=== PATIENT | male | born 1965 | race Caucasian/White ===

== ENCOUNTER → 2016-06-20 | Outpatient (CLI) | payer OTHER ==
[~2016-06-20] VITALS: Ht 177.8 cm; Wt 86.2 kg
[~2016-06-20] MED LIST: ALBU17IN INH; ALBU83IN INH; AMBI10TA PO; AMPH20CA PO; ASPI81TA85 PO; ATIV1TAB7 PO; AVEL1TAB PO; CAND8TAB PO; CARV25TA PO; CAYENNE PEPPER PO; CO Q400C2 PO; CORL1.7T PO; DOCU10CA PO; DUONSOL NEB; EFFE150C PO; FENO145T PO; IPRASOL4 NEB; KLOR1TAB65 PO; LASI40TA PO; LOTRCRE TOP; NS 1,000 ML IV SCH; OSEL75CA PO; PRED10TA PO; PROPOFOL 200 MG/20 ML VIAL As Ordered ONE; PSYLLIUM HUSK PO; SPIR25TA2 PO; TAMI45CA PO; TEST200I14 IM; TORS100T12 PO; VITA100037 PO; VITATAB11 PO; XANA2TAB2 PO; XOPE0.63 INH; ZYLO300T4 PO
--- NOTE | 2016-06-20 09:07 | ROOR ---
Patient Name: Jesus Manuel Mariscal Procedure Date: 06/20/2016 8:43 AM Date of : 1965 Age: 50 Room: [facility] Gender: Male Note Status: Finalized Procedure: Colonoscopy to Cecum Indications: Screening for colorectal malignant neoplasm Providers: Kapil Diaz MD Referring MD: MAX CLIFTON MD Requesting Provider: Medicines: Monitored Anesthesia Care Complications: No immediate complications. Procedure: Pre-Anesthesia Assessment: - The heart rate, respiratory rate, oxygen saturations, blood pressure, adequacy of pulmonary ventilation, and response to care were monitored throughout the procedure. The Colonoscope was introduced through the anus and advanced to the cecum, identified by appendiceal orifice and ileocecal valve. The colonoscopy was performed without difficulty. The patient tolerated the procedure well. The quality of the bowel preparation was excellent. Findings: The perianal and digital rectal examinations were normal. Non-bleeding internal hemorrhoids were found during retroflexion. The hemorrhoids were small and Grade I (internal hemorrhoids that do not prolapse). Scattered small-mouthed diverticula were found in the recto-sigmoid colon, in the sigmoid colon and in the descending colon. The exam was otherwise without abnormality on direct and retroflexion views. Impression: - Non-bleeding internal hemorrhoids. - Diverticulosis in the recto-sigmoid colon, in the sigmoid colon and in the descending colon. - The examination was otherwise normal on direct and retroflexion views. - No specimens collected. - The exam was otherwise normal to the cecum. Recommendation: - Patient has a contact number available for emergencies. The signs and symptoms of potential delayed complications were discussed with the patient. Return to normal activities tomorrow. Written discharge instructions were provided to the patient. - High fiber diet. - Discharge patient to home. - Continue present medications. - Repeat colonoscopy in 10 years for screening purposes. - Return to referring physician. - The findings and recommendations were discussed with the patient's family. Kapil Diaz MD Kapil Diaz MD 06/20/2016 9:06:52 AM This report has been signed electronically. Number of Addenda: 0 Note Initiated On: 06/20/2016 8:43 AM Estimated Blood Loss: Estimated blood loss: none.
[2016-06-20 09:34] VITALS: BP 143/78
== END ==
LOC: M OPP 06:56
PROVIDERS: ATTEND Internal Medicine Gastroenterology
DX: K62.5 Hemorrhage of anus and rectum (principal); K64.0 First degree hemorrhoids; K57.30 Diverticulosis of large intestine without perforation or abscess without bleeding; I25.2 Old myocardial infarction; G47.30 Sleep apnea, unspecified; F32.9 Major depressive disorder, single episode, unspecified; F41.9 Anxiety disorder, unspecified; E78.5 Hyperlipidemia, unspecified; I50.42 Chronic combined systolic (congestive) and diastolic (congestive) heart failure; I11.0 Hypertensive heart disease with heart failure; M10.9 Gout, unspecified; R94.31 Abnormal electrocardiogram [ECG] [EKG]; R12 Heartburn; R06.83 Snoring; J45.909 Unspecified asthma, uncomplicated; Z91.040 Latex allergy status; Z88.8 Allergy status to other drugs, medicaments and biological substances; Z79.82 Long term (current) use of aspirin; Z79.51 Long term (current) use of inhaled steroids; Z79.899 Other long term (current) drug therapy; Z95.810 Presence of automatic (implantable) cardiac defibrillator; Z87.891 Personal history of nicotine dependence; Z80.0 Family history of malignant neoplasm of digestive organs

== ENCOUNTER → 2016-08-23 | Outpatient (CLI) | payer OTHER ==
[~2016-08-23] MED LIST changes: -NS 1,000 ML IV SCH; -PROPOFOL 200 MG/20 ML VIAL As Ordered ONE; +TORS100T PO; -TORS100T12 PO
--- NOTE | 2016-08-23 08:51 | REP ---
Clinical: Chest pain and fatigue. Comparison: 11/03/2015 . Technique: PA and lateral. Findings: The mediastinum and cardiac silhouette are normal. Single lead pacemaker noted. The lung bernardo are clear and without acute consolidation, effusion, or pneumothorax. The skeletal structures are intact and normal. Impression: 1. No acute cardiopulmonary process. Signed by Carlitos Ortiz MD 08/23/2016 08:42 A
[2016-08-23 09:26] LABS: MEAN CORPUSCULAR HEMOGLOBIN 32.8 pg (27.0-33.0); MEAN CORPUSCULAR HGB CONC 35.3 g/dl (32.0-36.5); MEAN CORPUSCULAR VOLUME 92.9 fl (80.0-96.0); RED CELL DISTRIBUTION WIDTH 12.2 % (11.5-14.5); WHITE BLOOD COUNT 6.7 K/mm3 (4.0-10.0)
[2016-08-23 09:54] LABS: ALBUMIN 3.4 GM/DL (3.2-5.2); ALBUMIN/GLOBULIN RATIO 1.17 (1.00-1.93); ALKALINE PHOSPHATASE 66 U/L (45-117); ALT/SGPT 58 U/L (12-78); ANION GAP 8 MEQ/L (8-16); AST/SGOT 35 U/L (15-37); BILIRUBIN,TOTAL 0.3 MG/DL (0.2-1.0); BLOOD UREA NITROGEN 16 MG/DL (7-18); CALCIUM LEVEL 8.9 MG/DL (8.5-10.1); CARBON DIOXIDE LEVEL 35 MEQ/L (21-32); CHLORIDE LEVEL 101 MEQ/L (98-107); CREATININE FOR GFR 1.11 MG/DL (0.70-1.30); GLOMERULAR FILTRATION RATE > 60.0 (>56); GLUCOSE, FASTING 108 MG/DL (70-105); POTASSIUM SERUM 3.8 MEQ/L (3.5-5.1); SODIUM LEVEL 144 MEQ/L (136-145); TOTAL PROTEIN 6.3 GM/DL (6.4-8.2)
--- NOTE | 2016-08-23 10:00 | REP ---
REASON: Right upper quadrant pain. COMPARISON EXAMINATION: None. Multiple ultrasonographic images of the liver show diffuse increased echoes throughout the hepatic parenchyma without evidence of a mass or ductal dilatation. The common bile duct measures 4 mm. Multiple ultrasonographic images of the gallbladder show at least one echogenic focus in the gallbladder neck region which casts an acoustic shadow. There is no pericholecystic edema or abnormal gallbladder wall thickening. The imaged portion of the pancreas and right kidney are within normal limits. IMPRESSION: Cholelithiasis and fatty infiltration of the liver. Signed by Wiley Messer DO 08/23/2016 11:15 A
== END ==
LOC: M LAB 08:12 → M RAD 08:12
PROVIDERS: ATTEND Family Medicine
DX: K80.20 Calculus of gallbladder without cholecystitis without obstruction (principal); K76.0 Fatty (change of) liver, not elsewhere classified; K29.70 Gastritis, unspecified, without bleeding; R53.83 Other fatigue

== ENCOUNTER 2018-03-07 14:14 | Emergency (ER) | payer OTHER ==
[2018-03-07 14:59] LABS: BASO % 0.4 % (0.0-1.0); EOS # 0.2 10^3/uL (0.0-0.50); EOS % 2.2 % (0.0-3.0); HEMATOCRIT 38.1 % (42.0-52.0); IMMATURE GRANULOCYTE % 0.7 % (0-3.0); LYMPH # 1.7 10^3/uL (1.5-4.5); LYMPH % 23.4 % (24.0-44.0); MEAN CORPUSCULAR HEMOGLOBIN 31.4 pg (27.0-33.0); MEAN CORPUSCULAR HGB CONC 34.1 g/dl (32.0-36.5); MONO # 0.8 10^3/uL (0.0-0.8); MONO % 10.2 % (0.0-5.0); NEUTROPHILS # 4.6 10^3/uL (1.8-7.7); NEUTROPHILS % 63.1 % (36.0-66.0); PLATELET COUNT, AUTOMATED 278 10^3/uL (150-450); RED BLOOD COUNT 4.14 10^6/uL (4.30-6.10); RED CELL DISTRIBUTION WIDTH 12.8 % (11.5-14.5); WHITE BLOOD COUNT 7.3 10^3/uL (4.0-10.0)
[2018-03-07 15:26] LABS: ALBUMIN 3.9 GM/DL (3.2-5.2); ALBUMIN/GLOBULIN RATIO 1.44 (1.00-1.93); ALKALINE PHOSPHATASE 52 U/L (45-117); ALT/SGPT 22 U/L (12-78); ANION GAP 10 MEQ/L (8-16); AST/SGOT 13 U/L (7-37); BILIRUBIN,DIRECT < 0.1 MG/DL (0.0-0.2); BILIRUBIN,TOTAL 0.3 MG/DL (0.2-1.0); BLOOD UREA NITROGEN 17 MG/DL (7-18); CALCIUM LEVEL 9.5 MG/DL (8.5-10.1); CARBON DIOXIDE LEVEL 29 MEQ/L (21-32); CHLORIDE LEVEL 103 MEQ/L (98-107); CREATININE FOR GFR 0.86 MG/DL (0.70-1.30); GLOMERULAR FILTRATION RATE > 60.0 (>56); GLUCOSE, FASTING 93 MG/DL (70-100); LIPASE 205 U/L (73-393); POTASSIUM SERUM 3.9 MEQ/L (3.5-5.1); SODIUM LEVEL 142 MEQ/L (136-145); TOTAL PROTEIN 6.6 GM/DL (6.4-8.2)
[2018-03-07 15:28] LABS: KETONE, URINE AUTO RFX NEGATIVE (NEGATIVE); LEUKOCYTE ESTERASE UR AUTO RFX NEGATIVE (NEGATIVE); NITRITE, URINE AUTO RFX NEGATIVE (NEGATIVE); RBC, URINE AUTO RFX 0 /HPF (0-3); SPECIFIC GRAVITY UR AUTO RFX 1.005 (1.002-1.035); SQUAM EPITHELIAL CELL UR AURFX 0 /HPF (0-6); WBC, URINE AUTO RFX 0 /HPF (0-3)
[2018-03-07] MEDS: KETOROLAC TROMETHAMINE 10 MG TAB PO (15:33)
[2018-03-07] MEDS: BACLOFEN 10 MG TAB PO (15:35)
[2018-03-07] MEDS: PERCOCET 5MG/325MG TAB PO (17:04)
[2018-03-07] MEDS: diazePAM 10 MG TAB PO (17:58)
[2018-03-07] MEDS: predniSONE 20 MG TAB PO (18:06)
== END 2018-03-07 18:29 | disposition home or self-care (01) ==
LOC: M ED 14:14
DX: M51.26 Other intervertebral disc displacement, lumbar region (principal); M48.062 Spinal stenosis, lumbar region with neurogenic claudication; M51.36 Other intervertebral disc degeneration, lumbar region; M54.31 Sciatica, right side; I11.0 Hypertensive heart disease with heart failure; I50.9 Heart failure, unspecified; I25.2 Old myocardial infarction; E78.5 Hyperlipidemia, unspecified; J45.909 Unspecified asthma, uncomplicated; G47.33 Obstructive sleep apnea (adult) (pediatric); K21.9 Gastro-esophageal reflux disease without esophagitis; K57.92 Diverticulitis of intestine, part unspecified, without perforation or abscess without bleeding; F41.9 Anxiety disorder, unspecified; F32.9 Major depressive disorder, single episode, unspecified; M10.9 Gout, unspecified; S90.511A Abrasion, right ankle, initial encounter; X58.XXXA Exposure to other specified factors, initial encounter; Y92.89 Other specified places as the place of occurrence of the external cause; Z88.8 Allergy status to other drugs, medicaments and biological substances; Z79.899 Other long term (current) drug therapy; Z79.82 Long term (current) use of aspirin
CPT/HCPCS: 73610

== ENCOUNTER 2018-10-07 17:10 | Inpatient (IN) | payer OTHER ==
[~2018-10-07] VITALS: Ht 175.3 cm; Wt 98.0 kg
[~2018-10-07 17:10] MED LIST changes: -AVEL1TAB PO; +AVEL1TAB3 PO; -EFFE150C PO; +EFFE150C2 PO; -FENO145T PO; +FENO145T13 PO; +GLUC1CAP9 PO; +IPRA0.00 NEB; -IPRASOL4 NEB; -LASI40TA PO; +LASI40TA9 PO; +PERC5TAB12 PO; +PRED-351 PO; -PRED10TA PO; +PRED20TA PO; +ROBA500T PO; +SPIR-10 PO; -SPIR25TA2 PO; -VITA100037 PO; +VITA100067 PO; -ZYLO300T4 PO; +ZYLO300T6 PO
[2018-10-07] MEDS: FENOFIBRATE 145 MG TAB (TRICOR) PO SCH (18:00)
[2018-10-07 18:57] LABS: HEMATOCRIT 40.9 % (42.0-52.0); HEMOGLOBIN 13.9 g/dl (13.5-17.5); MEAN CORPUSCULAR HEMOGLOBIN 30.9 pg (27.0-33.0); MEAN CORPUSCULAR VOLUME 90.9 fl (80.0-96.0); PLATELET COUNT, AUTOMATED 285 10^3/uL (150-450); WHITE BLOOD COUNT 8.3 10^3/uL (4.0-10.0)
[2018-10-07 19:13] LABS: AMPHETAMINES LEVEL URINE POSITIVE (NEGATIVE); BARBITURATES URINE NEGATIVE (NEGATIVE); BENZODIAZEPINES URINE POSITIVE (NEGATIVE); CANNABINOIDS URINE NEGATIVE (NEGATIVE); COCAINE METABOLITE URINE NEGATIVE (NEGATIVE); METHADONE URINE NEGATIVE (NEGATIVE); OPIATES URINE NEGATIVE (NEGATIVE); PHENCYCLIDINE URINE NEGATIVE (NEGATIVE)
[2018-10-07 19:33] LABS: ACETAMINOPHEN LEVEL < 2.0 UG/ML (10.0-30.0); ALBUMIN 4.5 GM/DL (3.2-5.2); ALT/SGPT 24 U/L (12-78); BILIRUBIN,DIRECT 0.1 MG/DL (0.0-0.2); BILIRUBIN,TOTAL 0.5 MG/DL (0.2-1.0); BLOOD UREA NITROGEN 26 MG/DL (7-18); CALCIUM LEVEL 9.2 MG/DL (8.5-10.1); CARBON DIOXIDE LEVEL 33 MEQ/L (21-32); CHLORIDE LEVEL 104 MEQ/L (98-107); ETHYL ALCOHOL (ETHANOL) < 0.003 % (0.000-0.010); GLOMERULAR FILTRATION RATE > 60.0 (>56); GLUCOSE, FASTING 95 MG/DL (70-100); POTASSIUM SERUM 5.4 MEQ/L (3.5-5.1); SALICYLATE LEVEL < 1.7 MG/DL (5.0-30.0); SODIUM LEVEL 143 MEQ/L (136-145); TOTAL PROTEIN 7.2 GM/DL (6.4-8.2)
[2018-10-07] MEDS ORDERED: COQ150CA3 PO (20:32)
[2018-10-07] MEDS ORDERED: ADDE30TA PO (20:32)
[2018-10-07] MEDS ORDERED: VENTAER INH (20:32)
[2018-10-07] MEDS ORDERED: NORC1TAB8 PO (20:32)
[2018-10-07] MEDS ORDERED: ASPI1TAB20 PO (20:32)
[2018-10-07] MEDS ORDERED: FENO160T10 PO (20:32)
[2018-10-07] MEDS ORDERED: KLOR1CAP PO (20:32)
[2018-10-07] MEDS ORDERED: POTA1TAB21 PO (20:33)
[2018-10-07] MEDS ORDERED: MOM 30ML SUSPENSION UDC PO PRN (20:45)
[2018-10-07] MEDS ORDERED: MAALOX 30 ML SUSP *UDC PO PRN (20:45)
[2018-10-07] MEDS ORDERED: traZODone 50 MG TAB PO PRN (20:45)
[2018-10-07] MEDS ORDERED: ACETAMINOPHEN TAB 650MG DOSE (2X325MG) PO PRN (20:45)
[2018-10-07] MEDS: ANEXSIA, NORCO 7.5MG/325MG TABLET(HYDROCODONE/APAP) PO SCH (21:00)
[2018-10-07] MEDS ORDERED: ALBUTEROL 90 MCG/ACT 8GM HFA INHALER INH PRN (21:30)
[2018-10-07] MEDS: AMPHETAMINE/DEXTROAMPHETAMINE 5 MG *ER* CAPSULE (ADDERALL XR) PO SCH (21:45)
[2018-10-07 22:29] VITALS: BP 122/79
[2018-10-08] MEDS: VENLAFAXINE **XR** 75MG CAPSULE PO SCH ×3 (00:01→21:01)
[2018-10-08] MEDS: ALPRAZolam 0.5 MG TAB PO SCH ×2 (00:02→08:51)
[2018-10-08] MEDS: ASPIRIN 325 MG TAB PO SCH ×3 (00:02→21:02)
[2018-10-08] MEDS: CARVedilol 12.5 MG TAB PO SCH ×3 (00:03→21:01)
[2018-10-08] MEDS: TORSEMIDE 100 MG TAB PO SCH ×3 (00:03→16:51)
[2018-10-08 06:52] VITALS: BP 116/58
[2018-10-08] MEDS: AMPHETAMINE/DEXTROAMPHETAMINE 5 MG *ER* CAPSULE (ADDERALL XR) PO SCH ×2 (08:51→21:00)
[2018-10-08] MEDS: ANEXSIA, NORCO 7.5MG/325MG TABLET(HYDROCODONE/APAP) PO SCH ×2 (08:54→21:02)
[2018-10-08] MEDS: CO-ENZYME Q10 50 MG CAP PO SCH (08:54)
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
--- NOTE | 2018-10-08 14:35 | ECGEPIP ---
Stationary ECG Study [facility] - ED Test Date: 2018-10-07 Pat Name: UZAIR ENRIQUEZ Department: Room: [place] [address] Gender: M Strategic Account Manager: mark : 1965 Requested By: Anna Villa Order Number: [id number] Reading MD: Tay Salazar Measurements Intervals [place] Rate: 62 P: 48 RI: 206 QRS: -30 QRSD: 118 T: 40 QT: 444 QTc: 453 Interpretive Statements SINUS RHYTHM WITH FREQUENT VENTRICULAR PREMATURE COMPLEXES POSSIBLE ANTERIOR MYOCARDIAL INFARCTION, OF INDETERMINATE AGE MODERATE T-WAVE ABNORMALITY, CONSIDER LATERAL ISCHEMIA Similar to tracing done 04-09-15 with reduced rate and decreased artifact Electronically Signed On 10-08-2018 14:35:26 EDT by Tay Salazar
[2018-10-08] MEDS ORDERED: LORazepam 2 MG TAB PO PRN (14:45)
--- NOTE | 2018-10-08 15:10 | HPE ---
DATE OF ADMISSION: 10/07/2018 PRIMARY CARE PROVIDER: Dr. Irene Tatum FELT HAT STEAMER: Dr. Weiss HISTORY OF THE PRESENT ILLNESS: This patient is a 52 -year-old gentleman currently admitted in the inpatient mental health unit (IM) for concern of suicide. Patient is being seen and examined in the [facility]. At the time of encounter, patient does not complain about any sign or symptoms. Patient does have a history of congestive heart failure, ventricular tachycardia, and hypertension. For his medical condition patient has been taking a very high dose of steroids and one specific medication for congestive heart failure. Patient has been following with a healthcare provider in outpatient setting. Patient denied any new medical diagnosis. Patient denies any new medication changes. PAST MEDICAL HISTORY: Supraventricular tachycardia. Systolic congestive heart failure. Hypertension. Depression. Cardiomegaly. PAST SURGICAL HISTORY: Appendectomy. Tonsillectomy. Tumor removal of the right hand. Hernia repair. SOCIAL HISTORY: Patient used to smoke two packs daily for 10 years, quit in June 1998. Patient admit for heavy vodka usage for 2-3 years and alcohol use occurred in June 2017. Denied any recreational drug use. ALLERGIES: Angioedema from ANGIOTENSIN-CONVERTING ENZYME (LE) INHIBITOR. REVIEW OF SYSTEMS: GENERAL: No fever. No chills. HEENT: No vision change. No auditory changes. CARDIOVASCULAR: Denied any chest pain or palpitations. Patient does have a history of significant congestive heart failure and supraventricular tachycardia. LUNGS: Denied shortness of breath. No cough or sputum production. GASTROINTESTINAL (GI): Denied nausea, vomiting, diarrhea, or abdominal pain. MUSCULOSKELETAL: Denied any muscle pain or joint pain. NEUROLOGIC: Denied numbness or tingling. OBJECTIVE: VITAL SIGNS: Temperature is 98.6, pulse 62, respirations 14, blood pressure 116/58. GENERAL: No sign of acute distress. Alert and oriented times three. HEENT: Normocephalic, atraumatic. Extraocular motor grossly intact. CARDIOVASCULAR: Positive S1, S2. Rate is in the satisfactory range. LUNGS: Clear to auscultation bilaterally. ABDOMEN: Soft. Nontender. Bowel sounds present. EXTREMITIES: No edema appreciated. LABORATORY DATA: WBC 8.3, hemoglobin 13.9, hematocrit 40.9, platelet count is 285. Sodium is 143, potassium 5.4, chloride 104, carbon dioxide 33, BUN is 26, creatinine 1.1, GFR greater than 60, fasting glucose 95, calcium 9.2, total bilirubin 0.5, direct bilirubin is 0.1, AST 17, ALT 24, alkaline phosphatase 60, total protein 7.2, albumin 4.5, TSH 1.27. Urine toxicology is positive for amphetamines and benzodiazepines. ASSESSMENT AND PLAN: 1. Psychiatric condition. There is a concern for suicide for the patient. Patient is currently admitted on [facility]. Patient has a history of depression. Management per psychiatry. 2. Systolic congestive heart failure. In the outpatient setting, patient is being followed with Dr. Weiss. The most recent echocardiogram in our computer system was done in March 2015. At the time, patient was found to have an ejection fraction (EF) of 30%. According to the patient, patient has been taking torsemide 200 mg by mouth twice a day and ivabradine. We will confirm with patient's pharmacy for the diuretic dosage and frequency. It seems the patient has been on very a high dose of diuretic. Unfortunately, we do not carry ivabradine in our pharmacy. Patient may use his own medication. 3. Supraventricular tachycardia. Patient can use his ivabradine. Patient is also on carvedilol. 4. Hypertension. Continue Coreg and torsemide. 5. Deep venous thrombosis (DVT) prophylaxis. Encourage ambulation.
[2018-10-08 17:15] VITALS: BP 108/70
[2018-10-08 18:00] VITALS: BP 115/88
[2018-10-08] MEDS: FENOFIBRATE 145 MG TAB (TRICOR) PO SCH (18:07)
[2018-10-08] MEDS: IVABRADINE 5 MG PO SCH (18:26)
[2018-10-08 22:08] VITALS: BP 122/78
[2018-10-09 07:00] VITALS: BP 90/52
[2018-10-09 07:09] VITALS: BP 90/52
[2018-10-09] MEDS: IVABRADINE 5 MG PO SCH (09:00)
[2018-10-09 09:08] VITALS: BP 114/78
[2018-10-09] MEDS: ANEXSIA, NORCO 7.5MG/325MG TABLET(HYDROCODONE/APAP) PO SCH (09:08)
[2018-10-09] MEDS: ASPIRIN 325 MG TAB PO SCH (09:08)
[2018-10-09] MEDS: VENLAFAXINE **XR** 75MG CAPSULE PO SCH (09:08)
[2018-10-09] MEDS: CO-ENZYME Q10 50 MG CAP PO SCH (09:08)
[2018-10-09] MEDS: TORSEMIDE 100 MG TAB PO SCH (09:08)
[2018-10-09] MEDS: CARVedilol 12.5 MG TAB PO SCH (09:08)
[2018-10-09] MEDS: AMPHETAMINE/DEXTROAMPHETAMINE 5 MG *ER* CAPSULE (ADDERALL XR) PO SCH (09:09)
--- NOTE | 2018-10-09 10:19 | MHDSPDOC ---
[facility] Discharge Summary Discharge Summary DATE OF ADMISSION: Oct 07, 2018 at 8:44 pm DATE OF DISCHARGE: October 09, 2018 DISCHARGE DIAGNOSES: Major Depressive D/O Generalized anxiety d/o Amphetamine/benzodiazepine use history of alcohol use in remission history of ADHD R/O Narcissistic Personality D/O REASON FOR ADMISSION: Patient is a 52 -year-old male, with a history of depression, anxiety, ADHD, alcohol use in remission who was admitted after called PD due to pt posting statements on facebook about harming himself. Pt's per ED filed for divorce 09/26/18. Pt also per ED stating he had 3 pistols he gave to a friend but would not tell police who for safe keeping and that he had 10 long guns the police could see in his home at 10:30 pm on night of admission. Per ED pt defiant, not liking authority in ED. Informed by PD that it's illegal to give guns away as they require permits per ED. Pt reportedly paranoid of authority in ED. Called his teacher aide but didn't want ED to tell anyone who he called. CONSULTANTS INVOLVED: none TREATMENT AND PROGRESS ON THE UNIT : Pt was admitted to [facility], seen for psychiatric assessment and restarted on his outpatient medication effexor xr 150mg bid and adderall 30mg bid. He was started on a cinv protocol to detox him off xanax that he did not complete and stated he planned to titrate off xanax once seen outpatient at [facility]. He was provided trazodone 50mg qhs prn insomnia. Pt found his medications beneficial and tolerated them well. He attended groups daily during his stay. His symptoms improved with treatment. During stay pt and his accused me and d/c emergency planner on lying about why he was admitted and who called PD to report comments, even though he stated he posted a suicidal comment on facebook for sympathy and attention on his own who d/c emergency planner or I stating what happened and car is at the medical center's department Pt also recided JOSÉ for Dr. Ellen Tatum's office to be called to inform them of admission prior d/c a nd resided consent to contact then gave again requesting I apologize to about telling pt she called PD which I did. On day of discharge he denied depression, anxiety, insomnia, SI/HI, hallucinations, delusions, benzo withdrawal symptoms. He was discharged home with his with follow-up at [facility]. He felt safe for discharge. DISCHARGE ASSESSMENT: Pt seen with d/c emergency planner asking for administer present stating he (as he requested "be noted in the record") that I had poor judgement in telling me his called to the PD to report pt's suicidal comments on Facebook. Pt also stated I was being narcissistic and kept going back to telling me my judgement was poor (majority of pt's like to know how and this is first pt that's upset by it) and that his had grounds for malpractice. Pt was very demanding to speak at length about the same issue and anytime I would try to speak interrupted telling me the same thing. Per the ED, pt acted very similarly with the PD as reported by the PD. Pt also disrespectful and told me that "you don't know what it's like to deal with someone at your level" and would try to get into discussion arguments to labor on his point to the extent that nothing I said was pleasing to him. Denies depression, anxiety, insomnia, SI/HI, hallucinations, delusions. Feels safe here. MENTAL STATUS EXAMINATION ON DISCHARGE: General Appearance: well groomed, appears stated age, hospital scrubs/clothing Build: overweight Demeanor: narcissistic Eye Contact: average Activity: average Behavior: cooperative Speech: clear, normal volume, reg/rate,rhythm,volume Mood: euthymic, irritable Mood "make note I asked for an nurse administrator" Affect: full, appropriate, irritable Thought Process: logical/linear, intact Thought Content (Delusions): none reported, denies SI, HI, AVH Thought Content (Other): none reported, appropriate Thought Content (Aggressive): none reported Perception (Hallucinations): none reported Perception (Other): none reported Cognition (Impairment of): none reported Cognition(Intelligence Est.): average Oriented: Awake, Alert, Oriented times three Insight: fair Judgment: Fair Psychosis: Denies MEDICATIONS ON DISCHARGE: All continued from Dr. Ellen Tatum's office. effexor xr 150mg bid adderall 30mg bid xanax 2mg tid PLAN/FOLLOWUP ARRANGEMENTS: D/c home with follow-up at [facility]. The amount of time spent in the coordination of care for this patient was approximately 30 minutes. Vital Signs/I&Os Vital Signs Date Time Temp Pulse Resp B/P (MAP) Pulse Ox O2 Delivery O2 Flow Rate FiO2 10/09/18 07:09 97.7 51 14 90/52 (65) 10/07/18 21:52 100 10/07/18 17:47 Room Air Medications Scheduled Alprazolam (Xanax) 2 Mg Tab, 2 MG PO TID, (Reported) Aspirin (Aspirin) 325 Mg Tablet, 650 MG PO BID, (Reported) Carvedilol (Carvedilol) 25 Mg Tab, 25 MG PO BID, (Reported) Dextroamphetamine/Amphetamine (Adderall 30 mg Tablet) 30 Mg Tablet, 30 MG PO BID, (Reported) Fenofibrate (Fenofibrate) 160 Mg Tablet, 160 MG PO QPM, (Reported) Hydrocodone/Acetaminophen ([place] 7.5-325 Tablet) 1 Each Tablet, 1 TAB PO BID, (Reported) Ivabradine HCl (Corlanor) 5 Mg Tab, 5 MG PO BID, (Reported) Potassium Chloride (Potassium Chloride) 8 Meq Tablet.er, 16 MEQ PO BID, (Reported) Torsemide (Torsemide) 100 Mg Tab, 200 MG PO BID for ., (Reported) Ubidecarenone (Co Q-10) 50 Mg Capsule, 50 MG PO DAILY, (Reported) Venlafaxine HCl (Effexor Xr) 150 Mg Cap, 150 MG PO BID, (Reported) SEE COMMENTS Scheduled PRN Albuterol Sulfate (Ventolin Hfa) 18 Gm Hfa.aer.ad, 2 PUFF INH Q4H PRN for wheezing, (Reported) Allergies Coded Allergies: enalapril (Verified Allergy, Severe, angioedema, 10/07/18) angioedema spironolactone (Verified Allergy, Unknown, 10/07/18) slight tongue swelling MELLISA PINEDO DO Oct 09, 2018 09:22
== END 2018-10-09 10:50 | disposition home or self-care (01) | DRG 881 ==
LOC: M ED 17:10 → M ED INP 20:44 → M PSY 21:16
PROVIDERS: ADMIT Psychiatry & Neurology Psychiatry; ATTEND Psychiatry & Neurology Psychiatry
DX: F32.9 Major depressive disorder, single episode, unspecified (principal); I50.22 Chronic systolic (congestive) heart failure; I47.1 Supraventricular tachycardia; F41.1 Generalized anxiety disorder; F90.9 Attention-deficit hyperactivity disorder, unspecified type; F60.81 Narcissistic personality disorder; F15.90 Other stimulant use, unspecified, uncomplicated; Z79.899 Other long term (current) drug therapy; Z79.82 Long term (current) use of aspirin; Z88.8 Allergy status to other drugs, medicaments and biological substances; I11.0 Hypertensive heart disease with heart failure; Z87.891 Personal history of nicotine dependence

== ENCOUNTER → 2018-10-24 | Outpatient (REF) | payer OTHER ==
[~2018-10-24] MED LIST changes: +ADDE30TA PO; +ASPI1TAB20 PO; +COQ150CA3 PO; +FENO160T10 PO; +KLOR1CAP PO; +NORC1TAB8 PO; +POTA1TAB21 PO; +VENTAER INH
[2018-10-24 16:26] LABS: INR 0.99; PROTHROMBIN TIME 13.2 SECONDS (12.1-14.4)
[2018-10-24 16:27] LABS: PARTIAL THROMBOPLASTIN TIME 27.1 SECONDS (25.4-37.6)
== END ==
LOC: M LABDRAW1 15:37
PROVIDERS: ATTEND Physician Assistant
DX: Z01.812 Encounter for preprocedural laboratory examination (principal)

== ENCOUNTER 2018-11-21 16:34 | Emergency (ER) | payer OTHER ==
[~2018-11-21] VITALS: Ht 177.8 cm; Wt 105.4 kg
[2018-11-21 19:54] VITALS: BP 131/81
== END 2018-11-21 19:59 | disposition short-term general hospital (02) ==
LOC: M ED 16:34
DX: M48.061 Spinal stenosis, lumbar region without neurogenic claudication (principal); R15.9 Full incontinence of feces; M62.81 Muscle weakness (generalized); I50.9 Heart failure, unspecified; I25.2 Old myocardial infarction; I10 Essential (primary) hypertension; E78.5 Hyperlipidemia, unspecified; G89.29 Other chronic pain; M54.9 Dorsalgia, unspecified; J45.909 Unspecified asthma, uncomplicated; G47.30 Sleep apnea, unspecified; K21.9 Gastro-esophageal reflux disease without esophagitis; K57.32 Diverticulitis of large intestine without perforation or abscess without bleeding; F41.9 Anxiety disorder, unspecified; F32.9 Major depressive disorder, single episode, unspecified; Z95.0 Presence of cardiac pacemaker; Z95.810 Presence of automatic (implantable) cardiac defibrillator; E66.9 Obesity, unspecified; Z79.82 Long term (current) use of aspirin; Z79.899 Other long term (current) drug therapy; Z88.8 Allergy status to other drugs, medicaments and biological substances

== ENCOUNTER → 2019-07-05 | Outpatient (REF) | payer OTHER ==
[~2019-07-05] MED LIST changes: +AMPH1CAP16 PO; -AMPH20CA PO; -ASPI1TAB20 PO; +ASPI325T57 PO; -FENO145T13 PO; +FENO145T7 PO
[2019-07-05 16:08] LABS: INR 1.05; PROTHROMBIN TIME 13.4 SECONDS (11.8-14.0)
== END ==
LOC: M LABDRAW1 14:21
PROVIDERS: ATTEND Physical Medicine & Rehabilitation
DX: Z01.812 Encounter for preprocedural laboratory examination (principal)

== ENCOUNTER → 2019-08-29 | Outpatient (REF) | payer OTHER ==
[2019-08-29 18:09] LABS: PLATELET COUNT, AUTOMATED 269 10^3/uL (150-450)
== END ==
LOC: M LABDRAW1 15:51
PROVIDERS: ATTEND Physical Medicine & Rehabilitation
DX: Z01.812 Encounter for preprocedural laboratory examination (principal)

== ENCOUNTER 2019-10-05 14:03 | Inpatient (IN) | payer OTHER ==
[~2019-10-05] VITALS: Ht 177.8 cm; Wt 103.0 kg
[2019-10-05] MEDS ORDERED: ALPR1TAB3 PO (14:37)
[2019-10-05 15:12] LABS: BASO % 0.5 % (0.0-1.0); EOS % 0.1 % (0.0-3.0); HEMATOCRIT 49.1 % (42.0-52.0); HEMOGLOBIN 17.2 g/dl (13.5-17.5); LYMPH # 2.8 10^3/uL (1.5-5.0); LYMPH % 32.8 % (24.0-44.0); MEAN CORPUSCULAR HEMOGLOBIN 31.3 pg (27.0-33.0); MEAN CORPUSCULAR VOLUME 89.3 fl (80.0-96.0); MONO % 11.5 % (0.0-5.0); NEUTROPHILS # 4.7 10^3/uL (1.5-8.5); NEUTROPHILS % 54.7 % (36.0-66.0); PLATELET COUNT, AUTOMATED 316 10^3/uL (150-450); WHITE BLOOD COUNT 8.5 10^3/uL (4.0-10.0)
[2019-10-05 15:43] LABS: ALBUMIN 4.2 GM/DL (3.2-5.2); ALT/SGPT 31 U/L (12-78); BILIRUBIN,DIRECT 0.2 MG/DL (0.0-0.2); BILIRUBIN,TOTAL 0.8 MG/DL (0.2-1.0); BLOOD UREA NITROGEN 32 MG/DL (7-18); CALCIUM LEVEL 9.5 MG/DL (8.5-10.1); CARBON DIOXIDE LEVEL 28 MEQ/L (21-32); CHLORIDE LEVEL 100 MEQ/L (98-107); CK-MB VALUE MASS 1.4 NG/ML (<3.6); CPK CREATINE PHOSPHOKINASE 77 U/L (39-308); CREATININE FOR GFR 1.33 MG/DL (0.70-1.30); GLOMERULAR FILTRATION RATE 59.4 (>56); GLUCOSE, FASTING 114 MG/DL (70-100); MAGNESIUM LEVEL 1.9 MG/DL (1.8-2.4); MB/CK RELATIVE INDEX 1.82 (< OR =4); POTASSIUM SERUM 4.9 MEQ/L (3.5-5.1); SODIUM LEVEL 137 MEQ/L (136-145); TOTAL PROTEIN 7.9 GM/DL (6.4-8.2); TROPONIN I < 0.02 NG/ML (< 0.10)
[2019-10-05 15:47] LABS: OSMOLALITY SERUM 292 MOSM/KG (275-295)
[2019-10-05 16:23] LABS: NT-PRO BNP 4984 PG/ML (<125)
[2019-10-05] MEDS ORDERED: DIGOXIN INJ 0.5 MG/2 ML AMP (J1160) IV STA (16:36)
[2019-10-05] MEDS ORDERED: APIXABAN 5 MG TAB (ELIQUIS) PO ONE (16:45)
[2019-10-05] MEDS ORDERED: ECOT81TA5 PO (16:59)
[2019-10-05] MEDS ORDERED: SILD100T PO (17:01)
[2019-10-05] MEDS ORDERED: ALBUTEROL 90 MCG/ACT 8GM HFA INHALER INH PRN (17:45)
[2019-10-05] MEDS: TORSEMIDE 100 MG TAB PO SCH (18:00)
--- NOTE | 2019-10-05 18:25 | HPEPDOC ---
[facility] Medical History & Physical Date of Admission Oct 05, 2019 Date of Service: Oct 05, 2019 Primary Care Physician: Opal Tatum Attending Physician: ALLYSON INFANTE MD History and Physical PRIMARY CARE PROVIDER: Dr. Opal Tatum ATTENDING: Dr. Allyson Infante CHIEF COMPLAINT: Palpitations HISTORY OF PRESENT ILLNESS: Patient is a 53 year old male with extensive cardiac history presenting with chief complaint of palpitations beginning night with accompanying lightheadedness, dizziness, and increased dyspnea on exertion. These symptoms continued into the weekend and he states he didn't come in because he "avoids this place like the plague" and was hopeful it would self- resolve. Of note he also states he has had nausea with a single episode of dry heaves and abdominal distention lasting from Monday to Monday. He states he went on a 2 day fast on Monday and Monday, but this continued because of his nausea through this past Monday. He states the only thing he was able to keep down was water with sugar sprinkled in. He was able to hold down a full meal of Steak and rice on , but states he continues to feel somewhat nauseated with mild distention. PAST MEDICAL HISTORY: 3x ND's Systolic CHF w/ EF 35% by 2018 echo Hx of NSVT Pacemaker Single ventricle defibrillator bicuspid aortic valve DJD Depression Hyperlipidemia PAST SURGICAL HISTORY: Appendectomy Tonsillectomy Hernia repair PCI without stent placement Colonoscopy Tumor removal of right hand SOCIAL HISTORY: denies alcohol use, denies use of tobacco products as he quit sm oking in 1998, denies any marijuana, heroin, cocaine, or PCP use. 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 2 dogs at home. Denies any sick contacts or exposures including to persons with COVID, in fact he has been at home for the last month. He denies any recent travel/travel history. FAMILY HISTORY: Noncontributory. ALLERGIES: Please see below. REVIEW OF SYSTEMS: GENERAL: Denies fevers, chills, recent unexpected weight change, night sweats, hemoptysis HEENT: Denies headache, vision changes, hearing loss, sore throat CARDIOVASCULAR: Denies chest pain, orthopnea. Admits to palpitations as above. RESPIRATORY: Denies wheezing, cough. Admits to shortness of breath as above. GASTROINTESTINAL: denies constipation, diarrhea, bloody stool. Admits to nausea/vomiting/abdominal distention as above. GENITOURINARY: Denies dysuria,urinary urgency, hematuria. MUSCULOSKELETAL: Denies muscle/joint pain, weakness, stiffness NEUROLOGICAL: Denies any numbness/tingling, focal weakness, or syncope HOME MEDICATIONS: Please see below. PHYSICAL EXAMINATION: Vitals: (see below) General: Well-appearing male lying in bed comfortably in no acute distress. Nonlabored breathing, speaking in full sentences. HEENT: Normocephalic, atraumatic. EOMI. No scleral icterus. Moist mucous membranes. No pharyngeal erythema or uvular deviation. Neck: No JVD, lymphadenopathy, or thyromegaly. Cardiac: Irregular rhythm, tachycardic rate, Normal S1 and S2, No murmurs, gallops, rubs appreciated on auscultation. Pulm: Clear to auscultation b/l. Symmetric thorax. No wheezing, crackles, rhonchi Abd: Bowel Sounds present. Abdomen is soft, non-tender, non-distended. No guarding, rebound tenderness, or rigidity. No hepatosplenomegaly. No masses or eccymosis. Ext: No edema or cyanosis Neuro: No focal neuro deficits. A&Ox3. CN II-XII intact. LABORATORY DATA: See below. IMAGIN10/05/[address]: Result pending. MICROBIOLOGY: Please see below. ASSESSMENT/PLAN: 53 y/o Male presenting with 3 day history of palpitations and found to be in new-onset afib #. New-onset atrial fibrillation - Cause of new onset afib unknown, unclear if it is related to patient's recent GI distress or if their has been structural worsening of his heart, will order echo. Suspect patient's lightheadedness, dyspnea on exertion from symptomatic afib. Will attempt to achieve rate control to see if that helps with symptoms. -Patient given single dose of digoxin in ER, started Eliquis -Cardiology consulted, recommendations appreciated, they are comfortable with either digoxin or Amiodarone, will give patient single dose IV amiodarone at 1900 and then Q6H at midnight. Patient is on 400 mg amiodarone daily at home but seems to have been out of it as he does not list it as a home medication. #. Systolic CHF with EF 30% -Continue home torsemide, carvedilol (both with holding parameters), replacement potassium. Holding home Ivrabradrine (chronotropic medication ineffective in Afib) -BNP elevated, but no signs of fluid overload on exam, will continue with home meds for now. I/O's, daily weights ordered, low sodium diet ordered. -Repeating echocardiogram -Cardiology consulted, recommendations appreciated. #. Generalized anxiety disorder -Continue home Xanax #. Depression -Continue home venlafaxine #. Hyperlipidemia -Holding home medication -DVT prophy: Anuj Mccarthy, sequential's Vital Signs Vital Signs Date Time Temp Pulse Resp B/P (MAP) Pulse Ox O2 Delivery O2 Flow Rate FiO2 10/05/19 16:50 130 10/05/19 16:15 18 114/93 (100) 96 Room Air 10/05/19 14:47 97.7 Laboratory Data Labs 24H Laboratory Tests 2 10/05/19 14:56: Immature Granulocyte % (Auto) 0.4, Neutrophils (%) (Auto) 54.7, Lymphocytes (%) (Auto) 32.8, Monocytes (%) (Auto) 11.5H, Eosinophils (%) (Auto) 0.1, Basophils (%) (Auto) 0.5, Neutrophils # (Auto) 4.7, Lymphocytes # (Auto) 2.8, Monocytes # (Auto) 1.0H, Eosinophils # (Auto) 0.0, Basophils # (Auto) 0.0, Nucleated Red Blood Cells % (auto) 0.0, Anion Gap 9, Glomerular Filtration Rate 59.4, Osmolality 292, Calcium Level 9.5, Magnesium Level 1.9, Total Bilirubin 0.8, Direct Bilirubin 0.2, Aspartate Amino Transf (AST/SGOT) 14, Alanine Aminotransferase (ALT/SGPT) 31, Alkaline Phosphatase 88, Ammonia 15, Total Creatine Kinase 77, Creatine Kinase MB 1.4, Creatine Kinase MB Relative Index 1.82, Troponin I < 0.02, KG-Rmq-F-Type Natriuretic Peptide 4984H, Total Protein 7.9, Albumin 4.2, Albumin/Globulin Ratio 1.14, Thyroid Stimulating Hormone (TSH) 1.660 10/05/19 15:06: Lactic Acid Level 2.0 10/05/19 15:07: Coronavirus (COVID-19)(PCR) NEGATIVE CBC/BMP Laboratory Tests 10/05/19 14:56 Microbiology Microbiology 10/05/19 Respiratory Panel (PCR) - Final, Complete Home Medications Scheduled Alprazolam (Alprazolam) 1 Mg Tablet, 1 MG PO BID patient is self weening Apixaban (Eliquis) 5 Mg Tablet, 5 MG PO BID Aspirin (Ecotrin) 81 Mg Tablet.dr, 81 MG PO QHS Carvedilol (Carvedilol) 25 Mg Tab, 50 MG PO BID Fenofibrate (Fenofibrate) 160 Mg Tablet, 160 MG PO QPM Ivabradine HCl (Corlanor) 5 Mg Tab, 5 MG PO BID Potassium Chloride (Potassium Chloride) 8 Meq Tablet.er, 24 MEQ PO BID Torsemide (Torsemide) 100 Mg Tab, 200 MG PO BID for . Venlafaxine HCl (Effexor Xr) 150 Mg Cap, 150 MG PO BID Scheduled PRN Albuterol Sulfate (Ventolin Hfa) 18 Gm Hfa.aer.ad, 2 PUFF INH Q4H PRN for wheezing Sildenafil Citrate (Sildenafil Citrate) 100 Mg Tablet, 100 MG PO PRN PRN for ERECTILE DYSFUNCTION Allergies Coded Allergies: enalapril (Verified Allergy, Severe, angioedema, 10/07/18) angioedema spironolactone (Verified Allergy, Unknown, 10/07/18) slight tongue swelling A-FIB/CHADSVASC A-FIB History Current/History of A-Fib/PAF?: Yes Current PO Anticoag Therapy: Yes Age/Risk Factor Scoring CHADSVASC: CHADSVASC Response (Comments) Value Age Risk Factor Age < 65 years old 0 Gender Risk Factor Male 0 Hx of CHF Yes 1 Hx of HTN Yes 1 Hx of Stroke/TIA/or VTE No 0 Hx of Diabetes No 0 Hx of Vascular Disease No 0 Total 2 Treatment Treatment ordered: Apixaban GME ATTESTATION GME ATTESTATION My faculty preceptor for this patient encounter was physically present during the encounter and was fully available. All aspects of the patient interview, examination, medical decision making process, and medical care plan development were reviewed and approved by the faculty preceptor. The faculty preceptor is aware and concurs with the plan as stated in the body of this note and will attest to such by his/her cosignature. ATTENDING NOTE I have independently interviewed and examined the patient at the bedside, and agree with the aforementioned History, physical findings and management plans as documented by my Resident Physician. The patient's questions and concerns have been satisfactorily addressed. MIRIAM THOMPSON DO Oct 05, 2019 18:25 ALLYSON INFANTE MD Oct 07, 2019 19:50
[2019-10-05 19:00] VITALS: BP 125/90
[2019-10-05] MEDS ORDERED: AMIODARONE HCL 150 MG in IV 1 EA IV ONE ×2 (19:00→20:00)
[2019-10-05 20:00] VITALS: BP 120/74
[2019-10-05] MEDS: ALPRAZolam 0.5 MG TAB PO SCH (20:26)
[2019-10-05] MEDS: VENLAFAXINE **XR** 75MG CAPSULE PO SCH (20:27)
[2019-10-05] MEDS: POTASSIUM CHLORIDE 10 MEQ SR TABLET PO SCH (20:27)
[2019-10-05] MEDS: CARVedilol 12.5 MG TAB PO SCH (20:27)
[2019-10-05 20:40] LABS: CK-MB VALUE MASS 1.2 NG/ML (<3.6); CPK CREATINE PHOSPHOKINASE 73 U/L (39-308); MB/CK RELATIVE INDEX 1.64 (< OR =4); TROPONIN I < 0.02 NG/ML (< 0.10)
[2019-10-05] MEDS ORDERED: ASPIRIN 81 MG ENTERIC TAB PO SCH (21:00)
[2019-10-05] MEDS: AMIODARONE 200 MG TAB (PACERONE) PO SCH (23:59)
[2019-10-06] VITALS: BP 128/93
[2019-10-06 00:45] LABS: CK-MB VALUE MASS 1.1 NG/ML (<3.6); CPK CREATINE PHOSPHOKINASE 74 U/L (39-308); MB/CK RELATIVE INDEX 1.49 (< OR =4); TROPONIN I < 0.02 NG/ML (< 0.10)
[2019-10-06 04:00] VITALS: BP 125/72
[2019-10-06 05:17] LABS: HEMATOCRIT 50.1 % (42.0-52.0); MEAN CORPUSCULAR HEMOGLOBIN 31.3 pg (27.0-33.0); MEAN CORPUSCULAR HGB CONC 33.9 g/dl (32.0-36.5); MEAN CORPUSCULAR VOLUME 92.1 fl (80.0-96.0); PLATELET COUNT, AUTOMATED 311 10^3/uL (150-450); RED BLOOD COUNT 5.44 10^6/uL (4.30-6.10); WHITE BLOOD COUNT 8.7 10^3/uL (4.0-10.0)
[2019-10-06 05:32] LABS: BLOOD UREA NITROGEN 30 MG/DL (7-18); CALCIUM LEVEL 9.4 MG/DL (8.5-10.1); CARBON DIOXIDE LEVEL 31 MEQ/L (21-32); CHLORIDE LEVEL 101 MEQ/L (98-107); CREATININE FOR GFR 1.29 MG/DL (0.70-1.30); GLOMERULAR FILTRATION RATE > 60.0 (>56); GLUCOSE, FASTING 108 MG/DL (70-100); MAGNESIUM LEVEL 2.2 MG/DL (1.8-2.4); POTASSIUM SERUM 4.3 MEQ/L (3.5-5.1); SODIUM LEVEL 138 MEQ/L (136-145)
[2019-10-06] MEDS: AMIODARONE 200 MG TAB (PACERONE) PO SCH ×4 (05:42→23:27)
[2019-10-06 05:56] LABS: CK-MB VALUE MASS < 1.0 NG/ML (<3.6); CPK CREATINE PHOSPHOKINASE 78 U/L (39-308); MB/CK RELATIVE INDEX 1.28 (< OR =4); TROPONIN I < 0.02 NG/ML (< 0.10)
--- NOTE | 2019-10-06 07:08 | REP ---
CT BRAIN WITHOUT IV CONTRAST: CT brain performed without IV contrast. Coronal reconstruction images are performed. The ventricles are normal in size and position. There is midline shift or mass effect. Ponce-white differentiation is well maintained. There is no acute hemorrhage or extra-axial fluid collection. Bone window examination is unremarkable. IMPRESSION: Negative noncontrast CT brain. Electronically Signed by Ronn Ponce MD 10/06/2019 04:48 P
[2019-10-06 07:17] VITALS: BP 103/70
--- NOTE | 2019-10-06 07:23 | REP ---
CHEST, SINGLE VIEW: Single view of the chest is performed and compared to a prior study of 08/23/2016. There is no acute infiltrate. The heart is upper limits of normal in size. Mediastinal silhouette is unchanged. A single lead pacemaker is unchanged. IMPRESSION: No acute pulmonary disease. Electronically Signed by Ronn Ponce MD 10/06/2019 04:49 P
[2019-10-06] MEDS: CARVedilol 12.5 MG TAB PO SCH ×2 (08:11→21:03)
[2019-10-06] MEDS: TORSEMIDE 100 MG TAB PO SCH ×2 (08:11→16:49)
[2019-10-06] MEDS: ALPRAZolam 0.5 MG TAB PO SCH ×2 (08:48→21:03)
[2019-10-06] MEDS: POTASSIUM CHLORIDE 10 MEQ SR TABLET PO SCH ×2 (08:48→21:02)
[2019-10-06] MEDS: APIXABAN 2.5 MG TAB (ELIQUIS) PO SCH ×2 (08:48→21:02)
[2019-10-06] MEDS: VENLAFAXINE **XR** 75MG CAPSULE PO SCH ×2 (08:49→21:03)
--- NOTE | 2019-10-06 10:11 | ECGEPIP ---
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
--- NOTE | 2019-10-06 10:15 | IPNPDOC ---
Text Note Date of Service The patient was seen on 10/06/19. NOTE SUBJECTIVE: Feels comfortable. Says no nausea any more, Is not getting winded walking to the bathroom. No dizziness or light headedness. Pulse rate better controlled. PHYSICAL EXAMINATION: Vitals: (see below) General: Well-appearing male lying in bed comfortably in no acute distress. Nonlabored breathing, speaking in full sentences. HEENT: Normocephalic, atraumatic. EOMI. No scleral icterus. Moist mucous membranes. No pharyngeal erythema or uvular deviation. Neck: No JVD, lymphadenopathy, or thyromegaly. Cardiac: Irregular rhythm, tachycardic rate, Normal S1 and S2, No murmurs, gallops, rubs appreciated on auscultation. Pulm: Clear to auscultation b/l. Symmetric thorax. No wheezing, crackles, rhonchi Abd: Bowel Sounds present. Abdomen is soft, non-tender, non-distended. No guarding, rebound tenderness, or rigidity. No hepatosplenomegaly. No masses or eccymosis. Ext: No edema or cyanosis Neuro: No focal neuro deficits. A&Ox3. CN II-XII intact. LABS and RADIOLOGY: Reviewed. ASSESSMENT/PLAN: Patient is a 53 year old male with extensive cardiac history presenting with chief complaint of palpitations for 3 days with accompanying lightheadedness, dizziness, and increased dyspnea on exertion. These symptoms continued into the weekend and he states he didn't come in because he "avoids this place like the plague" and was hopeful it would self-resolve. Of note he also states he has had nausea with a single episode of dry heaves and abdominal distention lasting 6 days ago which lasted for 3 days. He also states he went on a 2 day fast on Monday and Monday and his abdominal symptoms started on that Monday 6 days ago but this continued because of his nausea through this past Monday. On Presentation to ED he was found t have A fib with Rvr. #. New-onset atrial fibrillation - Cause of new onset afib unknown, unclear if it is related to patient's recent GI distress or if there has been structural worsening of his heart, will order echo. - Patient given single dose of digoxin in ER, started Eliqucurtis - Discussed with Dr Weiss over the phone. Patient is supposed to be on 400 mg amiodarone daily at home but seems he has never got it filled. Started on Amiodarone 200 mg qid. #. 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 -has single ventricle ICD in place -Continue home torsemide, carvedilol (both with holding parameters), replacement potassium. Holding home Ivrabradrine (chronotropic medication ineffective in Afib) -BNP elevated, but no signs of fluid overload on exam, will continue with home meds for now. I/O's, daily weights ordered, low sodium diet ordered. -Repeating echocardiogram -Cardiology consulted, recommendations appreciated. #. h/o NSVT no VT or pvcs at present. #. Generalized anxiety disorder -Continue home Xanax #. Depression -Continue home venlafaxine #. Hyperlipidemia -Holding home medication -DVT prophy: Anuj Mccarthy, sequential's VS,Fishbone, I+O VS, Fishbone, I+O Laboratory Tests 10/05/19 14:56 10/06/19 04:51 Vital Signs Date Time Temp Pulse Resp B/P (MAP) Pulse Ox O2 Delivery O2 Flow Rate FiO2 10/06/19 08:11 71 103/70 10/06/19 07:17 96.0 18 95 Room Air I&O- Last 24 Hours up to 6 AM 10/06/19 06:00 Intake Total 1740 ml Output Total 925 ml Balance 815 ml VALENTE BURGER MD Oct 06, 2019 10:15
[2019-10-06 12:00] VITALS: BP 104/78
--- NOTE | 2019-10-06 12:14 | ECGEPIP ---
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
[2019-10-06 16:28] VITALS: BP 98/58
[2019-10-06 20:00] VITALS: BP 121/93
[2019-10-07] VITALS: BP 106/63
[2019-10-07 04:00] VITALS: BP 130/74
[2019-10-07 05:12] LABS: HEMATOCRIT 48.6 % (42.0-52.0); HEMOGLOBIN 16.3 g/dl (13.5-17.5); MEAN CORPUSCULAR HEMOGLOBIN 31.3 pg (27.0-33.0); MEAN CORPUSCULAR HGB CONC 33.5 g/dl (32.0-36.5); MEAN CORPUSCULAR VOLUME 93.5 fl (80.0-96.0); PLATELET COUNT, AUTOMATED 274 10^3/uL (150-450); WHITE BLOOD COUNT 9.4 10^3/uL (4.0-10.0)
[2019-10-07 05:33] LABS: BLOOD UREA NITROGEN 22 MG/DL (7-18); CALCIUM LEVEL 9.2 MG/DL (8.5-10.1); CARBON DIOXIDE LEVEL 30 MEQ/L (21-32); CHLORIDE LEVEL 105 MEQ/L (98-107); CREATININE FOR GFR 1.11 MG/DL (0.70-1.30); GLOMERULAR FILTRATION RATE > 60.0 (>56); GLUCOSE, FASTING 125 MG/DL (70-100); MAGNESIUM LEVEL 2.4 MG/DL (1.8-2.4); SODIUM LEVEL 140 MEQ/L (136-145)
[2019-10-07] MEDS: AMIODARONE 200 MG TAB (PACERONE) PO SCH ×4 (06:27→23:47)
[2019-10-07] MEDS ORDERED: ELIQ5TAB PO (07:18)
[2019-10-07] MEDS ORDERED: metOLazone 2.5 MG TAB PO ONE (07:30)
[2019-10-07 08:00] VITALS: BP 124/80
[2019-10-07] MEDS: TORSEMIDE 100 MG TAB PO SCH ×2 (09:00→16:56)
[2019-10-07] MEDS: POTASSIUM CHLORIDE 10 MEQ SR TABLET PO SCH ×2 (09:00→20:49)
[2019-10-07] MEDS: ALPRAZolam 0.5 MG TAB PO SCH ×2 (09:10→20:48)
[2019-10-07] MEDS: APIXABAN 5 MG TAB (ELIQUIS) PO SCH ×2 (09:10→20:48)
[2019-10-07] MEDS: CARVedilol 12.5 MG TAB PO SCH ×2 (09:10→20:48)
[2019-10-07] MEDS: VENLAFAXINE **XR** 75MG CAPSULE PO SCH ×2 (09:11→20:49)
--- NOTE | 2019-10-07 10:49 | IPNPDOC ---
Text Note Date of Service The patient was seen on 10/07/19. NOTE SUBJECTIVE: Patient feeling well today with no SOB, nausea, vomiting, GI dist ress, or loss of appetite, but reports he continues to have intermittent palpitations. PHYSICAL EXAMINATION: Vitals: (see below) General: Well-appearing male lying in bed comfortably in no acute distress. Nonlabored breathing, speaking in full sentences. HEENT: Normocephalic, atraumatic. EOMI. No scleral icterus. Moist mucous membranes. No pharyngeal erythema or uvular deviation. Neck: No JVD, lymphadenopathy, or thyromegaly. Cardiac: Irregular rhythm, normal rate, Normal S1 and S2, No murmurs, gallops, rubs appreciated on auscultation. Pulm: Clear to auscultation b/l. Symmetric thorax. No wheezing, crackles, rhonchi Abd: Bowel Sounds present. Abdomen is soft, non-tender, non-distended. No guarding, rebound tenderness, or rigidity. No hepatosplenomegaly. No masses or eccymosis. Ext: No edema or cyanosis Neuro: No focal neuro deficits. A&Ox3. LABS and RADIOLOGY: Reviewed. ASSESSMENT/PLAN: Patient is a 53 year old male with extensive cardiac history presenting with chief complaint of palpitations for 3 days with accompanying lightheadedness, dizziness, and increased dyspnea on exertion. These symptoms continued into the weekend and he states he didn't come in because he "avoids this place like the plague" and was hopeful it would self-resolve. Of note he also states he has had nausea with a single episode of dry heaves and abdominal distention lasting 6 days ago which lasted for 3 days. He also states he went on a 2 day fast on Monday and Monday and his abdominal symptoms started on that Monday 6 days ago but this continued because of his nausea through this past Monday. On Presentation to ED he was found t jayjay A fib with Rvr. #. New-onset atrial fibrillation - Cause of new onset afib unknown, echo pending, GI distress resolved so unlikely to be causative agent. - Digx1 in ED, started on low dose of eliquis, dose changed to 5mg PO BID - Cardiology consulted, recommendations appreciated, patient was supposed to DC Ivrabradrine and start Amiodarone outpatient but elected not to as he felt the medication was working. He is on amiodarone QID. #. 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 -has single ventricle ICD in place -Continue home torsemide, carvedilol (both with holding parameters), replacement potassium. Holding home Ivrabradrine (chronotropic medication ineffective in Afib) -BNP elevated, but no signs of fluid overload on exam, will continue with home meds for now. I/O's, daily weights ordered, low sodium diet ordered. -Echo results pending. -Cardiology consulted, recommendations appreciated. #. h/o NSVT -No VT or pvcs at present. #. Generalized anxiety disorder -Continue home Xanax #. Depression -Continue home venlafaxine #. Hyperlipidemia -Holding home medication -DVT prophy: Anuj Mccarthy sequential'arnaud Dispo: pending echo results, cardiology eval VS,Fishbone, I+O VS, Fishbone, I+O Laboratory Tests 10/07/19 04:52 Vital Signs Date Time Temp Pulse Resp B/P (MAP) Pulse Ox O2 Delivery O2 Flow Rate FiO2 10/07/19 09:10 72 116/80 10/07/19 08:00 96.6 20 98 Room Air I&O- Last 24 Hours up to 6 AM 10/07/19 06:00 Intake Total 2700 ml Output Total 2125 ml Balance 575 ml GME ATTESTATION GME ATTESTATION My faculty preceptor for this patient encounter was physically present during the encounter and was fully available. All aspects of the patient interview, examination, medical decision making process, and medical care plan development were reviewed and approved by the faculty preceptor. The faculty preceptor is aware and concurs with the plan as stated in the body of this note and will attest to such by his/her cosignature. ATTENDING NOTE I have independently interviewed and examined the patient at the bedside, and agree with the aforementioned management plans and physical findings as documented by my Resident Physician. MIRIAM THOMPSON DO Oct 07, 2019 10:49 VALENTE BURGER MD Oct 07, 2019 20:03
[2019-10-07 12:00] VITALS: BP 134/82
[2019-10-07 16:00] VITALS: BP 129/84
[2019-10-07 20:00] VITALS: BP 132/64
--- NOTE | 2019-10-07 23:16 | ECHO ---
DATE OF PROCEDURE: 10/07/2019 REFERRING PHYSICIAN: Dr. Mehul Salgado INDICATION: Abnormal ECG. HEIGHT: 178 cm WEIGHT: 105 kg 2D MEASUREMENTS: Left atrium: 5.9 cm Ventricular septum: 1.11 cm Posterior wall: 1.12 cm Left ventricle diastole: 7.0 cm Proximal ascending aorta: 3.5 cm Aortic annulus: 2.3 cm Aortic root: 3.3 cm Inferior vena cava: 2.0 cm DOPPLER MEASUREMENTS: Very mild aortic regurgitation. No aortic stenosis. Aortic valve velocity: 123 cm/s Mild-moderate mitral regurgitation. No mitral stenosis. Trace tricuspid regurgitation. Estimated right ventricle systolic pressure: 28-33 mmHg assuming a pressure of 5-10 mmHg. No pulmonic regurgitation. MITRAL ANNULAR TISSUE DOPPLER: E prime septal: 4.1 cm/s E prime lateral: 4.5 cm/s DESCRIPTION: Rhythm was atrial fibrillation with mildly rapid ventricular response. This was a moderately technically difficult echocardiogram. CONCLUSIONS: 1. Severely dilated left ventricle with normal left ventricular (LV) wall thickness. Severe global LV hypokinesis with severe reduction in overall LV systolic function. Left ventricular ejection fraction (LVEF) 20% by visual estimate. Difficult to fully assess LV diastolic function in the setting of atrial fibrillation. However, reduced mitral annular tissue Doppler suggests at least some degree of LV diastolic dysfunction. 2. Severe left atrial dilatation. 3. Moderate aortic valve sclerosis of a 3-cusp aortic valve. Very mild aortic regurgitation. No aortic stenosis. 4. Structurally normal appearing mitral leaflets with mild-moderate mitral regurgitation. 5. Normal right ventricle size. Mild right ventricle hypertrophy. Normal right ventricle systolic function. 6. Tiny pericardial effusion. 7. Presence of an implantable cardioverter defibrillator (ICD) lead coursing towards the right ventricle apex. ADDITIONAL COMMENTS AND RECOMMENDATIONS: In view of severe left atrial dilatation, suggest rate controlled approach to atrial fibrillation.
[2019-10-08] VITALS: BP 128/72
[2019-10-08 04:00] VITALS: BP 106/90
[2019-10-08 05:11] LABS: HEMATOCRIT 50.9 % (42.0-52.0); HEMOGLOBIN 17.3 g/dl (13.5-17.5); MEAN CORPUSCULAR HEMOGLOBIN 30.8 pg (27.0-33.0); MEAN CORPUSCULAR VOLUME 90.6 fl (80.0-96.0); PLATELET COUNT, AUTOMATED 319 10^3/uL (150-450); RED BLOOD COUNT 5.62 10^6/uL (4.30-6.10); WHITE BLOOD COUNT 9.7 10^3/uL (4.0-10.0)
[2019-10-08] MEDS: AMIODARONE 200 MG TAB (PACERONE) PO SCH ×3 (05:25→17:19)
[2019-10-08 05:33] LABS: CALCIUM LEVEL 9.5 MG/DL (8.5-10.1); CREATININE FOR GFR 1.45 MG/DL (0.70-1.30); GLOMERULAR FILTRATION RATE 53.8 (>56); MAGNESIUM LEVEL 2.1 MG/DL (1.8-2.4)
[2019-10-08] MEDS: CARVedilol 12.5 MG TAB PO SCH ×2 (07:59→20:16)
[2019-10-08 08:30] VITALS: BP 102/50
[2019-10-08] MEDS: TORSEMIDE 100 MG TAB PO SCH (08:36)
[2019-10-08] MEDS: ALPRAZolam 0.5 MG TAB PO SCH ×2 (08:36→20:22)
[2019-10-08] MEDS: VENLAFAXINE **XR** 75MG CAPSULE PO SCH ×2 (08:37→20:21)
[2019-10-08] MEDS: POTASSIUM CHLORIDE 10 MEQ SR TABLET PO SCH ×2 (08:37→20:22)
[2019-10-08] MEDS: APIXABAN 5 MG TAB (ELIQUIS) PO SCH ×2 (08:37→20:21)
[2019-10-08] MEDS ORDERED: SLF 3 ML SYR IV PRN (09:00)
[2019-10-08] MEDS: SLF 3 ML SYR IV SCH ×2 (11:09→20:22)
[2019-10-08 12:00] VITALS: BP 120/78
[2019-10-08] MEDS ORDERED: AMIO200T PO (12:50)
[2019-10-08 16:00] VITALS: BP 120/68
--- NOTE | 2019-10-08 18:51 | IPNPDOC ---
Text Note Date of Service The patient was seen on 10/08/19. NOTE SUBJECTIVE: Patient feeling well today with no SOB, nausea, vomiting, GI dist ress, or loss of appetite, he had an episode of palpitations this morning that resolved after a couple of minutes causing diaphoresis. PHYSICAL EXAMINATION: Vitals: (see below) General: Well-appearing male lying in bed comfortably in no acute distress. Nonlabored breathing, speaking in full sentences. HEENT: Normocephalic, atraumatic. EOMI. No scleral icterus. Moist mucous membranes. No pharyngeal erythema or uvular deviation. Neck: No JVD, lymphadenopathy, or thyromegaly. Cardiac: Irregular rhythm, normal rate, Normal S1 and S2, No murmurs, gallops, rubs appreciated on auscultation. Pulm: Clear to auscultation b/l. Symmetric thorax. No wheezing, crackles, rhonchi Abd: Bowel Sounds present. Abdomen is soft, non-tender, non-distended. No guarding, rebound tenderness, or rigidity. No hepatosplenomegaly. No masses or eccymosis. Ext: No edema or cyanosis Neuro: No focal neuro deficits. A&Ox3. LABS and RADIOLOGY: Reviewed. ASSESSMENT/PLAN: Patient is a 53 year old male with extensive cardiac history presenting with chief complaint of palpitations for 3 days with accompanying lightheadedness, dizziness, and increased dyspnea on exertion. These symptoms continued into the weekend and he states he didn't come in because he "avoids this place like the plague" and was hopeful it would self-resolve. Of note he also states he has had nausea with a single episode of dry heaves and abdominal distention lasting 6 days ago which lasted for 3 days. He also states he went on a 2 day fast on Monday and Monday and his abdominal symptoms started on that Monday 6 days ago but this continued because of his nausea through this past Monday. On Presentation to ED he was found t ohave A fib with Rvr. #. New-onset atrial fibrillation - Cause of new onset afib unknown, echo pending - Digx1 in ED, on eliquis 5mg PO BID - Cardiology consulted, recommendations appreciated, patient was supposed to DC Ivrabradrine and start Amiodarone outpatient but elected not to as he felt the medication was working. He is on amiodarone QID. - Will keep patient one more night to ensure he has no further episodes of symptomatic palpitations #. 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 -has single ventricle ICD in place -Continue home torsemide, carvedilol (both with holding parameters), replacement potassium. Holding home Ivrabradrine (chronotropic medication ineffective in Afib) -BNP elevated, but no signs of fluid overload on exam, will continue with home meds for now. I/O's, daily weights ordered, low sodium diet ordered. -Echo results pending. -Cardiology consulted, recommendations appreciated. #. h/o NSVT -No VT or pvcs at present. #. Generalized anxiety disorder -Continue home Xanax #. Depression -Continue home venlafaxine #. Hyperlipidemia -Holding home medication -DVT prophy: Anuj Mccarthy sequential's Dispo: Anticipate DC tomorrow Attending attestation: I evaluated and examined the patient in person; I discussed the care with Resident in detail and agree with the plan above. VS,Fishbone, I+O VS, Fishbone, I+O Laboratory Tests 10/08/19 05:01 Vital Signs Date Time Temp Pulse Resp B/P (MAP) Pulse Ox O2 Delivery O2 Flow Rate FiO2 10/08/19 16:00 97.4 110 18 120/68 (85) 96 Room Air I&O- Last 24 Hours up to 6 AM 10/08/19 05:59 Intake Total 1920 ml Output Total 4050 ml Balance -2130 ml GME ATTESTATION GME ATTESTATION My faculty preceptor for this patient encounter was physically present during the encounter and was fully available. All aspects of the patient interview, examination, medical decision making process, and medical care plan development were reviewed and approved by the faculty preceptor. The faculty preceptor is a lacey and concurs with the plan as stated in the body of this note and will attest to such by his/her cosignature. MIRIAM THOMPSON DO Oct 08, 2019 18:51 JUAN ARCOS MD October 15, 2019 19:08
[2019-10-08 20:00] VITALS: BP 108/64
[2019-10-09] VITALS: BP 102/58
[2019-10-09] MEDS: AMIODARONE 200 MG TAB (PACERONE) PO SCH ×5 (00:07→23:47)
[2019-10-09 04:00] VITALS: BP 122/70
[2019-10-09 04:57] LABS: HEMATOCRIT 50.1 % (42.0-52.0); HEMOGLOBIN 17.7 g/dl (13.5-17.5); MEAN CORPUSCULAR HEMOGLOBIN 31.7 pg (27.0-33.0); MEAN CORPUSCULAR HGB CONC 35.3 g/dl (32.0-36.5); MEAN CORPUSCULAR VOLUME 89.6 fl (80.0-96.0); PLATELET COUNT, AUTOMATED 343 10^3/uL (150-450); RED BLOOD COUNT 5.59 10^6/uL (4.30-6.10); WHITE BLOOD COUNT 12.7 10^3/uL (4.0-10.0)
[2019-10-09 05:16] LABS: CALCIUM LEVEL 9.2 MG/DL (8.5-10.1); CREATININE FOR GFR 2.01 MG/DL (0.70-1.30); GLOMERULAR FILTRATION RATE 36.9 (>56); MAGNESIUM LEVEL 2.3 MG/DL (1.8-2.4); POTASSIUM SERUM 3.7 MEQ/L (3.5-5.1)
[2019-10-09] MEDS: SLF 3 ML SYR IV SCH ×3 (05:52→20:37)
[2019-10-09 07:48] VITALS: BP 101/64
[2019-10-09] MEDS: CARVedilol 12.5 MG TAB PO SCH ×2 (09:00→20:37)
[2019-10-09] MEDS ORDERED: TORSEMIDE 100 MG TAB PO SCH (09:00)
[2019-10-09] MEDS: VENLAFAXINE **XR** 75MG CAPSULE PO SCH ×2 (09:06→20:36)
[2019-10-09] MEDS: APIXABAN 5 MG TAB (ELIQUIS) PO SCH ×2 (09:06→20:36)
[2019-10-09] MEDS: ALPRAZolam 0.5 MG TAB PO SCH ×2 (09:06→20:36)
[2019-10-09] MEDS: POTASSIUM CHLORIDE 10 MEQ SR TABLET PO SCH ×2 (09:09→20:37)
--- NOTE | 2019-10-09 09:19 | ECGEPIP ---
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
[2019-10-09] MEDS: METOCLOPRAMIDE INJ 10MG/2ML VIAL (J2765 PER 1) IV PRN ×2 (09:48→16:27)
[2019-10-09] MEDS: ONDANSETRON 4MG/2ML VIAL IV PRN ×3 (11:09→15:05)
[2019-10-09 11:44] VITALS: BP 138/103
--- NOTE | 2019-10-09 11:52 | REP ---
CT ABDOMEN AND PELVIS WITHOUT IV OR ORAL CONTRAST: HISTORY: Emesis. Comparison abdominal CT study July 10, 2008. CT FINDINGS: Preliminary digital eligibility technician radiograph demonstrates formed stool throughout a nondistended colon. A pacemaker is seen in the right heart. Heart appears mildly prominent in size. The lung bases demonstrate two tiny sub-centimeter nodules in the right lower lobe unchanged from the 2005 and 2008 prior study. The lung bases are otherwise clear. There is evidence of a very small sliding-type hiatal hernia. No focal hepatic lesion is seen. There is faint peripheral calcification surrounding a gallstone measuring 1.7 cm in diameter within the lumen of the gallbladder. The gallbladder is otherwise unremarkable. There are two focal calcifications in the tail of the pancreas. These appear to be old compared with the prior study. No pancreatic mass or cyst is seen. There are calcifications in the pancreatic head as well, which were not previously apparent. Question previous pancreatitis. No adrenal lesion is seen. The kidneys are morphologically intact. No hydronephrosis or renal calculus seen. There is left colonic diverticulosis affecting the descending and sigmoid segments of the colon without CT evidence of diverticulitis. Seminal vesicles prostate and urinary bladder are unremarkable. The appendix is surgically absent. No abdominal wall defect is seen. There is no evidence of bowel obstruction. No abnormal fluid collection or free air is seen. IMPRESSION: Cholelithiasis. Left colonic diverticulosis. There are a few dystrophic calcifications in the pancreas raising question of prior pancreatitis. No inflammatory changes are seen in the pancreas currently. Stable right lower lobe nodules in the lung base. Electronically Signed by Denys Hernandez MD 10/09/2019 12:25 P
--- NOTE | 2019-10-09 13:54 | IPNPDOC ---
Text Note Date of Service The patient was seen on 10/09/19. NOTE SUBJECTIVE: Patient complaining of severe nausea this morning and vomited mul tiple times in the room. He denies any palpitations, chest pain, he does admit to flank discomfort, denies SOB, difficulty breathing. PHYSICAL EXAMINATION: Vitals: (see below) General: Moderate distress, sitting in chair at bedside. HEENT: Normocephalic, atraumatic. EOMI. No scleral icterus. Moist mucous membranes. No pharyngeal erythema or uvular deviation. Neck: No JVD, lymphadenopathy, or thyromegaly. Cardiac: Irregular rhythm, normal rate, Normal S1 and S2, No murmurs, gallops, rubs appreciated on auscultation. Pulm: Clear to auscultation b/l. Symmetric thorax. No wheezing, crackles, rhonchi Abd: Bowel Sounds present. Abdomen is soft, tender to palpation right>left, non-distended. No guarding, rebound tenderness, or rigidity. No hepatosplenomegaly. No masses or eccymosis. No CVA tenderness Ext: No edema or cyanosis Neuro: No focal neuro deficits. A&Ox3. LABS and RADIOLOGY: Reviewed. ASSESSMENT/PLAN: Patient is a 53 year old male with extensive cardiac history presenting with chief complaint of palpitations for 3 days with accompanying lightheadedness, dizziness, and increased dyspnea on exertion and found to have new onset A fib with Rvr. #. Emesis/ generalized abdominal pain -2 anti-emetics given -CT scan showing no acute abnormalities, but showing 1.7 cm gallstone without evidence of cholecystitis. - Will continue with anti-emetics and have him on Full liquids diet to see if this improves on its own as this may simply be related to food he ate. He is afebrile, saturating well on RA, and his HR remains stable, will continue to monitor. #. Acute renal failure - Creatinine rise yesterday was thought to be 2/2 torsemide, it was held yesterday and stopped before he received it today. -Kidneys grossly normal on CT scan, UA, Ucr, Kacie ordered. - Will gently hydrate at 100 ml/hr in light of fluid losses and renal failure. #. New-onset atrial fibrillation - Cause of new onset afib unknown, echo pending - Digx1 in ED, on eliquis 5mg PO BID - Cardiology consulted, recommendations appreciated, patient was supposed to DC Ivrabradrine and start Amiodarone outpatient but elected not to as he felt the medication was working. He is on amiodarone BID. - Will keep patient one more night to ensure he has no further episodes of symptomatic palpitations #. Systolic CHF with EF 20% -Severe global hypokinesis, severe left atrial dilatation, recommending rate control approach for afib in view of severe left atrial dilatation. - thought to be due to dilated cardiomyopathy, his coronaries were clean in angiography patient reported. -has single ventricle ICD in place -Holding home torsemide, continue carvedilol (with holding parameters), replacement potassium. Holding home Ivrabradrine (chronotropic medication ineffective in Afib) -BNP elevated, but no signs of fluid overload on exam, will continue with home meds for now. I/O's, daily weights ordered, low sodium diet ordered. -Cardiology consulted, recommendations appreciated. #. h/o NSVT -No VT or pvcs at present. #. Generalized anxiety disorder -Continue home Xanax #. Depression -Continue home venlafaxine #. Hyperlipidemia -Holding home medication -DVT prophy: Anuj Mccarthy sequential'arnaud Dispo: pending clinical improvement Attending attestation: I evaluated and examined the patient in person; I discussed the care with Resident in detail and agree with the plan above. VS,Fishbone, I+O VS, Fishbone, I+O Laboratory Tests 10/09/19 04:44 Vital Signs Date Time Temp Pulse Resp B/P (MAP) Pulse Ox O2 Delivery O2 Flow Rate FiO2 10/09/19 11:44 97.0 107 18 138/103 (115) 100 Room Air I&O- Last 24 Hours up to 6 AM 10/09/19 06:00 Intake Total 2135 ml Output Total 2925 ml Balance -790 ml GME ATTESTATION GME ATTESTATION My faculty preceptor for this patient encounter was physically present during the encounter and was fully available. All aspects of the patient interview, examination, medical decision making process, and medical care plan development were reviewed and approved by the faculty preceptor. The faculty preceptor is aware and concurs with the plan as stated in the body of this note and will attest to such by his/her cosignature. MIRIAM THOMPSON DO Oct 09, 2019 13:54 JUNA ARCOS MD October 15, 2019 19:18
[2019-10-09] MEDS ORDERED: NS 500 ML IV ONE (14:00)
[2019-10-09 15:53] VITALS: BP 118/84
[2019-10-09 20:00] VITALS: BP 130/81
[2019-10-10] VITALS: BP 107/75
[2019-10-10 00:25] LABS: APPEARANCE, URINE HAZY (CLEAR); BACTERIA, URINE AUTO NEGATIVE (NEGATIVE); BILIRUBIN, URINE AUTO NEGATIVE (NEGATIVE); BLOOD, URINE BLOOD NEGATIVE (NEGATIVE); COLOR, URINE YELLOW (YELLOW); GLUCOSE, URINE (UA) AUTO NEGATIVE (NEGATIVE); KETONE, URINE AUTO NEGATIVE (NEGATIVE); LEUKOCYTE ESTERASE, URINE AUTO NEGATIVE (NEGATIVE); MUCUS, URINE SMALL (NEGATIVE); NITRITE, URINE AUTO NEGATIVE (NEGATIVE); PROTEIN, URINE AUTO NEGATIVE (NEGATIVE); RBC, URINE AUTO 0 /HPF (0-3); SPECIFIC GRAVITY URINE AUTO 1.015 (1.002-1.035); SQUAMOUS EPITHELIAL CELL UR AU 1 /HPF (0-6); UROBILINOGEN, URINE AUTO 0.2 mg/dL (0.0-2.0); WBC, URINE AUTO 1 /HPF (0-3)
[2019-10-10 00:56] LABS: SODIUM,RANDOM URINE < 10 MEQ/L
[2019-10-10 04:00] VITALS: BP 110/80
[2019-10-10 06:10] LABS: HEMATOCRIT 48.9 % (42.0-52.0); HEMOGLOBIN 16.8 g/dl (13.5-17.5); MEAN CORPUSCULAR HEMOGLOBIN 30.7 pg (27.0-33.0); MEAN CORPUSCULAR HGB CONC 34.4 g/dl (32.0-36.5); MEAN CORPUSCULAR VOLUME 89.4 fl (80.0-96.0); PLATELET COUNT, AUTOMATED 331 10^3/uL (150-450); RED BLOOD COUNT 5.47 10^6/uL (4.30-6.10)
[2019-10-10 06:34] LABS: CREATININE FOR GFR 1.94 MG/DL (0.70-1.30); GLOMERULAR FILTRATION RATE 38.4 (>56); MAGNESIUM LEVEL 2.5 MG/DL (1.8-2.4)
[2019-10-10] MEDS: AMIODARONE 200 MG TAB (PACERONE) PO SCH (06:38)
[2019-10-10] MEDS: SLF 3 ML SYR IV SCH ×2 (06:38→14:00)
[2019-10-10] MEDS ORDERED: NS 1,000 ML IV ONE (07:00)
[2019-10-10 07:38] VITALS: BP 108/81
[2019-10-10] MEDS ORDERED: ONDANSETRON 4MG/2ML VIAL IV PRN (07:45)
[2019-10-10] MEDS ORDERED: METOCLOPRAMIDE INJ 10MG/2ML VIAL (J2765 PER 1) IV PRN (07:45)
[2019-10-10 08:27] VITALS: BP 108/81
[2019-10-10] MEDS: CARVedilol 12.5 MG TAB PO SCH ×2 (08:27→08:44)
[2019-10-10] MEDS: ALPRAZolam 0.5 MG TAB PO SCH (08:43)
[2019-10-10] MEDS: APIXABAN 5 MG TAB (ELIQUIS) PO SCH (08:44)
[2019-10-10] MEDS: POTASSIUM CHLORIDE 10 MEQ SR TABLET PO SCH (08:44)
[2019-10-10] MEDS: VENLAFAXINE **XR** 75MG CAPSULE PO SCH (08:44)
[2019-10-10] MEDS ORDERED: ONDA4TAB6 PO (10:02)
[2019-10-10 11:48] VITALS: BP 112/64
[2019-10-10] MEDS ORDERED: AMIODARONE 200 MG TAB (PACERONE) PO SCH (12:00)
[2019-10-10] MEDS ORDERED: METO5TAB77 PO (14:02)
[2019-10-10 14:35] LABS: TROPONIN I < 0.02 NG/ML (< 0.10)
[2019-10-10 15:33] LABS: BLOOD UREA NITROGEN 39 MG/DL (7-18); CALCIUM LEVEL 8.9 MG/DL (8.5-10.1); CARBON DIOXIDE LEVEL 30 MEQ/L (21-32); CHLORIDE LEVEL 99 MEQ/L (98-107); CREATININE FOR GFR 1.69 MG/DL (0.70-1.30); GLOMERULAR FILTRATION RATE 45.1 (>56); GLUCOSE, FASTING 144 MG/DL (70-100); SODIUM LEVEL 137 MEQ/L (136-145)
--- NOTE | 2019-10-10 16:13 | DS.PDOC ---
Discharge Summary General Date of Admission Oct 05, 2019 at 17:20 Date of Discharge 10/10/2019 Primary Care Physician: Opal Tatum Attending Physician: JUAN ARCOS MD Specialist/Consultants Involve: Tay Weiss Discharge Summary PROCEDURES PERFORMED DURING STAY: Echocardiogram. ADMITTING/DISCHARGE DIAGNOSES: New-onset atrial fibrillation 3x AR's Systolic CHF w/ EF 30% Hx of NSVT Pacemaker Single ventricle defibrillator bicuspid aortic valve DJD Depression Hyperlipidemia COMPLICATIONS/CHIEF COMPLAINT: Palpitations HISTORY OF PRESENT ILLNESS/HOSPITAL COURSE: Patient is a 53 year old male with extensive cardiac history who presented with chief complaint of palpitations beginning 3 days prior and accompanying lightheadedness, dizziness, and increasing dyspnea on exertion. In the ED, patient was found to be in new onset atrial fibrillation so he was admitted for further medical management and Dr. Palma, his river boat captain, was contacted for further guidance and recommended discontinuing Ivrabradine due to its possible side effect of Afib and initiating amiodarone therapy 4x daily as well as Eliquis. The patient's symptoms improved somewhat and heart rate gradually came down over the next few days on the amiodarone but failed to convert to NSR and a new echo was ordered. By hospital stay day 2 the patient continued to complain of intermittent palpitations but stated they were less intense than before. On 10/07, the patient's creatinine was seen to be elevated so his torsemide was reduced to a daily dosage, however the on 10/08 the creatinine went up further so it was discontinued entirely and that morning the patient developed GI distress and vomited several times. He was started on anti-emetics and a CT scan was done showing no acute pathology and he began to gradually feel better. On 10/09, the patient's creatinine had improved slightly, but the patient again had emesis. After looking into side effects, the patient's amiodarone was lowered to 200 mg twice daily instead of QID and later that morning the patient coincidentally converted to NSR. The patient's creatinine trended down after a fluid bolus was completed and he felt safe for discharge and follow up with his PCP. DISCHARGE MEDICATIONS: Please see below. ALLERGIES: Please see below. Vitals: (see below) General: Moderate distress, sitting in chair at bedside. HEENT: Normocephalic, atraumatic. EOMI. No scleral icterus. Moist mucous membranes. No pharyngeal erythema or uvular deviation. Neck: No JVD, lymphadenopathy, or thyromegaly. Cardiac: Irregular rhythm, normal rate, Normal S1 and S2, No murmurs, gallops, rubs appreciated on auscultation. Pulm: Clear to auscultation b/l. Symmetric thorax. No wheezing, crackles, rhonchi Abd: Bowel Sounds present. Abdomen is soft, tender to palpation right>left, non-distended. No guarding, rebound tenderness, or rigidity. No hepatosplenomegaly. No masses or eccymosis. No CVA tenderness Ext: No edema or cyanosis Neuro: No focal neuro deficits. A&Ox3. LABORATORY DATA: Please see below. IMAGIN10/05/[address]: Negative noncontrast CT brain. 10/05/19 chest x-ray: No acute pulmonary disease. 10/09/2019 CT abdomen/pelvis: Cholelithiasis. Left colonic diverticulosis. There are a few dystrophic calcifications in the pancreas raising question of prior pancreatitis. No inflammatory changes are seen in the pancreas currently. Stable right lower lobe nodules in the lung base. PROGNOSIS: guarded ACTIVITY: As tolerated. DIET: DASH FLUID RESTRICTION: 1500 ml/24 hr restriction DISCHARGE PLAN: home DISCHARGE INSTRUCTIONS: 1. Please return to hospital if symptoms worsen. 2. Please follow up with PCP next week 3. Please call Dr. Palma's office for follow up appointment DISCHARGE CONDITION: Stable. TIME SPENT ON DISCHARGE: 35 minutes Attending attestation: I evaluated and examined the patient in person; I discussed the care with Resident in detail and agree with the plan above. Vital Signs/I&Os Vital Signs Date Time Temp Pulse Resp B/P (MAP) Pulse Ox O2 Delivery O2 Flow Rate FiO2 10/10/19 11:48 96.7 68 18 112/64 (80) 97 Room Air I&O- Last 24 Hours up to 6 AM 10/10/19 06:00 Intake Total 1040 ml Output Total 1100 ml Balance -60 ml Laboratory Data Labs 24H Laboratory Tests 2 10/10/19 00:00: Urine Color YELLOW, Urine Appearance HAZY, Urine pH 5.0, Urine Specific [place] 1.015, Urine Protein NEGATIVE, Urine Glucose (Auto)(UA) NEGATIVE, Urine Ketones (Auto) NEGATIVE, Urine Blood NEGATIVE, Urine Nitrite NEGATIVE, Urine Bilirubin NEGATIVE, Urine Urobilinogen 0.2, Urine Leukocyte Esterase (Auto) NEGATIVE, Urine WBC (Auto) 1, Urine RBC (Auto) 0, Urine Hyaline Casts (Auto) 60, Urine Bacteria (Auto) NEGATIVE, Urine Squamous Epithelial Cells 1, Urine Mucus (Auto) SMALL, Urine Sperm (Auto) , Urine Random Creatinine 226.0, Urine Random Sodium < 10 10/10/19 05:56: Nucleated Red Blood Cells % (auto) 0.0, Anion Gap 8, Glomerular Filtration Rate 38.4L, Calcium Level 10.0, Magnesium Level 2.5H 10/10/19 13:48: Anion Gap 8, Glomerular Filtration Rate 45.1L, Calcium Level 8.9, Troponin I < 0.02 CBC/BMP Laboratory Tests 10/10/19 05:56 10/10/19 13:48 Microbiology Microbiology 10/05/19 Respiratory Panel (PCR) - Final, Complete Discharge Medications Scheduled Alprazolam (Alprazolam) 1 Mg Tablet, 1 MG PO BID, (Reported) patient is self weening Amiodarone HCl (Amiodarone HCl) 200 Mg Tablet, 200 MG PO Q12H Apixaban (Eliquis) 5 Mg Tablet, 5 MG PO BID Aspirin (Ecotrin) 81 Mg Tablet.dr, 81 MG PO QHS, (Reported) Carvedilol (Carvedilol) 25 Mg Tab, 50 MG PO BID, (Reported) Fenofibrate (Fenofibrate) 160 Mg Tablet, 160 MG PO QPM, (Reported) Venlafaxine HCl (Effexor Xr) 150 Mg Cap, 150 MG PO BID, (Reported) Scheduled PRN Albuterol Sulfate (Ventolin Hfa) 18 Gm Hfa.aer.ad, 2 PUFF INH Q4H PRN for wheezing, (Reported) Metoclopramide HCl (Metoclopramide HCl Odt) 5 Mg Tab.rapdis, 5 MG PO Q6HP PRN for nausea/vomiting Sildenafil Citrate (Sildenafil Citrate) 100 Mg Tablet, 100 MG PO PRN PRN for ERECTILE DYSFUNCTION, (Reported) Allergies Coded Allergies: enalapril (Verified Allergy, Severe, angioedema, 10/07/18) angioedema spironolactone (Verified Allergy, Unknown, 10/07/18) slight tongue swelling GME ATTESTATION GME ATTESTATION My faculty preceptor for this patient encounter was physically present during the encounter and was fully available. All aspects of the patient interview, examination, medical decision making process, and medical care plan development were reviewed and approved by the faculty preceptor. The faculty preceptor is aware and concurs with the plan as stated in the body of this note and will attest to such by his/her cosignature. MIRIAM THOMPSON DO Oct 10, 2019 16:13 JUAN ARCOS MD October 18, 2019 16:14
--- NOTE | 2019-10-10 19:40 | ECGEPIP ---
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
== END 2019-10-10 17:25 | disposition home or self-care (01) | DRG 309 ==
LOC: M ED 14:03 → M ED INP 17:20 → ENRESERVTM 17:48 → ENRESERVDT 17:48 → M PCU 18:44
PROVIDERS: ADMIT Internal Medicine Nephrology; ATTEND Internal Medicine Nephrology
DX: I48.91 Unspecified atrial fibrillation (principal); I50.22 Chronic systolic (congestive) heart failure; F41.1 Generalized anxiety disorder; F32.9 Major depressive disorder, single episode, unspecified; E78.5 Hyperlipidemia, unspecified; Z79.899 Other long term (current) drug therapy; Z79.82 Long term (current) use of aspirin; Z88.8 Allergy status to other drugs, medicaments and biological substances; I25.2 Old myocardial infarction; Z95.0 Presence of cardiac pacemaker

== ENCOUNTER 2019-11-01 20:36 | Emergency (ER) | payer OTHER ==
[~2019-11-01] VITALS: Ht 177.8 cm; Wt 106.8 kg
[~2019-11-01 20:36] MED LIST changes: +ALPR1TAB3 PO; +AMIO200T PO; +ECOT81TA5 PO; +ELIQ5TAB PO; +METO5TAB77 PO; +ONDA4TAB6 PO; +SILD100T PO
[2019-11-01] MEDS ORDERED: NORCO, ANEXSIA 5/325MG TABLET (HYDROcodone/ACETAMINOPHEN) PO ONE (21:30)
[2019-11-01] MEDS ORDERED: PERCOCET 5MG/325MG TAB PO ONE (23:15)
[2019-11-02] MEDS ORDERED: OXYCODONE/APAP 5MG/325MG(BULK FOR ED) 1 TABLET PO ONE (00:45)
[2019-11-02] MEDS ORDERED: PERC5TAB12 PO (00:47)
[2019-11-02 00:56] VITALS: BP 110/70
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
== END 2019-11-02 01:17 | disposition home or self-care (01) ==
LOC: M ED 20:36
DX: S22.41XA Multiple fractures of ribs, right side, initial encounter for closed fracture (principal); S82.844A Nondisplaced bimalleolar fracture of right lower leg, initial encounter for closed fracture; V28.4XXA Motorcycle driver injured in noncollision transport accident in traffic accident, initial encounter; Y92.410 Unspecified street and highway as the place of occurrence of the external cause; I10 Essential (primary) hypertension; I50.9 Heart failure, unspecified; J45.909 Unspecified asthma, uncomplicated; G47.33 Obstructive sleep apnea (adult) (pediatric); E78.5 Hyperlipidemia, unspecified; F33.9 Major depressive disorder, recurrent, unspecified; F41.9 Anxiety disorder, unspecified; Z95.0 Presence of cardiac pacemaker; Z79.899 Other long term (current) drug therapy; Z79.01 Long term (current) use of anticoagulants; Z88.8 Allergy status to other drugs, medicaments and biological substances

== ENCOUNTER 2019-11-04 13:40 | Emergency (ER) | payer OTHER ==
[~2019-11-04] VITALS: Ht 177.8 cm; Wt 106.8 kg
[2019-11-04 13:42] VITALS: BP 103/65
[2019-11-04] MEDS ORDERED: PERCOCET 5MG/325MG TAB PO ONE (14:30)
[2019-11-04] MEDS ORDERED: COLA100C5 PO (14:32)
[2019-11-04] MEDS ORDERED: MIRA3350 PO (14:32)
[2019-11-04] MEDS ORDERED: PERC5TAB12 PO (14:32)
== END 2019-11-04 15:09 | disposition home or self-care (01) ==
LOC: M ED 13:40
DX: Z76.0 Encounter for issue of repeat prescription (principal); S22.41XA Multiple fractures of ribs, right side, initial encounter for closed fracture; S82.844A Nondisplaced bimalleolar fracture of right lower leg, initial encounter for closed fracture; V28.4XXA Motorcycle driver injured in noncollision transport accident in traffic accident, initial encounter; Y92.410 Unspecified street and highway as the place of occurrence of the external cause

== ENCOUNTER → 2020-05-06 | Outpatient (CLI) | payer OTHER ==
[~2020-05-06] MED LIST changes: -AMIO200T PO; +AMIO200T3 PO; -ASPI81TA85 PO; +ASPI81TA86 PO; +COLA100C5 PO; +MIRA3350 PO
== END ==
LOC: M LABSMTC 13:35
PROVIDERS: ATTEND Family Medicine
DX: Z20.828 Contact with and (suspected) exposure to other viral communicable diseases (principal)

== ENCOUNTER 2021-02-03 12:32 | Emergency (ER) | payer OTHER ==
[~2021-02-03] VITALS: Ht 177.8 cm; Wt 90.9 kg
[2021-02-03 13:27] LABS: VENOUS BASE EXCESS 1.4 (-2.0-2.0); VENOUS HCO3 27.9 MEQ/L (23.0-27.0); VENOUS O2 SATURATION 32.7 % (60.0-80.0); VENOUS PARTIAL PRESSURE CO2 51.3 mmHg (38.0-50.0); VENOUS PARTIAL PRESSURE O2 20.7 mmHg (30.0-50.0); VENOUS PH 7.353 UNITS (7.330-7.430); VENOUS STANDARD HCO3 24.2 MEQ/L; VENOUS TOTAL CO2 29.5 MEQ/L (24.0-28.0)
[2021-02-03 13:30] LABS: BASO # 0.1 10^3/uL (0.0-0.2); BASO % 0.3 % (0.0-1.0); EOS # 0.1 10^3/uL (0.0-0.5); EOS % 0.3 % (0.0-3.0); HEMATOCRIT 41.2 % (42.0-52.0); HEMOGLOBIN 13.5 g/dl (13.5-17.5); LYMPH # 0.8 10^3/uL (1.5-5.0); LYMPH % 5.6 % (24.0-44.0); MEAN CORPUSCULAR HEMOGLOBIN 29.5 pg (27.0-33.0); MEAN CORPUSCULAR HGB CONC 32.8 g/dl (32.0-36.5); MONO # 1.2 10^3/uL (0.0-0.8); MONO % 8.3 % (2.0-8.0); NEUTROPHILS # 12.4 10^3/uL (1.5-8.5); PLATELET COUNT, AUTOMATED 322 10^3/uL (150-450); RED BLOOD COUNT 4.58 10^6/uL (4.30-6.10); WHITE BLOOD COUNT 14.6 10^3/uL (4.0-10.0)
--- NOTE | 2021-02-03 13:49 | REP ---
INDICATION: DYSPNEA/COUGH. COMPARISON: Comparison radiographs November 01, 2019. TECHNIQUE: Portable upright AP chest radiograph. FINDINGS: Moderate cardiomegaly is observed. A unipolar pacemaker lead is seen in the right heart view of the left side as before. Pulmonary vasculature is cephalized and somewhat congested. Interstitial markings are prominent in the bases consistent with [place] B lines. No pleural effusion is seen. No focal infiltrate is appreciated. IMPRESSION: CHF pattern. Vascular congestion cardiomegaly and mild interstitial edema. <Electronically signed by Donal Hernandez > 02/03/21 [id number]
[2021-02-03 14:03] LABS: ALBUMIN 3.6 GM/DL (3.2-5.2); ALT/SGPT 33 U/L (12-78); BILIRUBIN,DIRECT 0.2 MG/DL (0.0-0.2); BILIRUBIN,TOTAL 0.6 MG/DL (0.2-1.0); BLOOD UREA NITROGEN 18 MG/DL (7-18); CALCIUM LEVEL 9.7 MG/DL (8.5-10.1); CARBON DIOXIDE LEVEL 29 MEQ/L (21-32); CHLORIDE LEVEL 106 MEQ/L (98-107); CK-MB VALUE MASS 1.8 NG/ML (<3.6); CPK CREATINE PHOSPHOKINASE 161 U/L (39-308); CREATININE FOR GFR 1.14 MG/DL (0.70-1.30); GLOMERULAR FILTRATION RATE > 60.0 (>56); GLUCOSE, FASTING 122 MG/DL (70-100); MB/CK RELATIVE INDEX 1.12 (< OR =4); NT-PRO BNP 11872 PG/ML (<125); POTASSIUM SERUM 5.1 MEQ/L (3.5-5.1); SODIUM LEVEL 139 MEQ/L (136-145); TOTAL PROTEIN 7.3 GM/DL (6.4-8.2); TROPONIN I < 0.02 NG/ML (< 0.10)
[2021-02-03 14:45] VITALS: BP 107/77
--- NOTE | 2021-02-04 18:44 | ECGEPIP ---
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
== END 2021-02-03 15:36 | disposition left against medical advice (07) ==
LOC: M ED 12:32
DX: I50.9 Heart failure, unspecified (principal); E78.5 Hyperlipidemia, unspecified; I25.2 Old myocardial infarction; Z95.0 Presence of cardiac pacemaker; Z87.891 Personal history of nicotine dependence; Z88.8 Allergy status to other drugs, medicaments and biological substances

== ENCOUNTER → 2021-03-15 | Outpatient (CLI) | payer OTHER ==
[2021-03-15 14:05] LABS: PLATELET COUNT, AUTOMATED 320 10^3/uL (150-450)
[2021-03-15 14:13] LABS: INR 1.27; PROTHROMBIN TIME 16.3 SECONDS (12.7-14.5)
[2021-03-15 14:14] LABS: PARTIAL THROMBOPLASTIN TIME 33.5 SECONDS (25.9-37.0)
== END ==
LOC: M LAB 13:20
PROVIDERS: ATTEND Physical Medicine & Rehabilitation
DX: M48.07 Spinal stenosis, lumbosacral region (principal)

== ENCOUNTER → 2021-05-10 | Outpatient (CLI) | payer OTHER ==
[~2021-05-10] MED LIST changes: -AMIO200T3 PO; +AMIO200T49 PO; -CAND8TAB PO; +CAND8TAB8 PO
== END ==
LOC: M RAD 16:57
PROVIDERS: ATTEND Internal Medicine Pulmonary Disease
DX: R06.02 Shortness of breath (principal); R91.8 Other nonspecific abnormal finding of lung field

== ENCOUNTER → 2021-05-11 | Outpatient (CLI) | payer OTHER ==
[2021-05-11 14:46] LABS: HEMATOCRIT 40.2 % (42.0-52.0); HEMOGLOBIN 13.8 g/dl (13.5-17.5); MEAN CORPUSCULAR HEMOGLOBIN 30.9 pg (27.0-33.0); MEAN CORPUSCULAR HGB CONC 34.3 g/dl (32.0-36.5); MEAN CORPUSCULAR VOLUME 90.1 fl (80.0-96.0); PLATELET COUNT, AUTOMATED 291 10^3/uL (150-450); RED BLOOD COUNT 4.46 10^6/uL (4.30-6.10); WHITE BLOOD COUNT 8.4 10^3/uL (4.0-10.0)
[2021-05-11 15:12] LABS: HEMOGLOBIN A1c 5.5 %
[2021-05-11 15:19] LABS: ALBUMIN 3.6 GM/DL (3.2-5.2); ALT/SGPT 55 U/L (12-78); BILIRUBIN,TOTAL 0.5 MG/DL (0.2-1.0); BLOOD UREA NITROGEN 24 MG/DL (7-18); CARBON DIOXIDE LEVEL 34 MEQ/L (21-32); CHLORIDE LEVEL 102 MEQ/L (98-107); CHOLESTEROL LEVEL 224 MG/DL (<200); CHOLESTEROL RISK RATIO 5.209 (<5); CREATININE FOR GFR 0.98 MG/DL (0.70-1.30); GLOMERULAR FILTRATION RATE > 60.0 (>56); GLUCOSE, FASTING 111 MG/DL (70-100); HDL CHOLESTEROL 43 MG/DL (>40); LDL CHOLESTEROL 165 MG/DL (<100); NON-HDL-C 181 MG/DL; POTASSIUM SERUM 3.7 MEQ/L (3.5-5.1); PROSTATIC SPECIFIC AG MONITOR 0.55 NG/ML (< 4.00); SODIUM LEVEL 144 MEQ/L (136-145); TRIGLYCERIDES LEVEL 80 MG/DL (<150)
== END ==
LOC: M LAB 14:10
PROVIDERS: ATTEND Family Medicine
DX: I10 Essential (primary) hypertension (principal); D46.9 Myelodysplastic syndrome, unspecified; E03.9 Hypothyroidism, unspecified

== ENCOUNTER → 2021-05-21 | Outpatient (CLI) | payer OTHER ==
[~2021-05-21] MED LIST changes: +E-Z-GAS II EFFERVESCENT PACKET (SODIUM BICARB./CITRIC ACID/SIMETHICONE) As Ordered ONE; +E-Z-HD 98% w/w 340GM SUSP BTL As Ordered ONE; +E-Z-PAQUE 96% w/w SUSP 176GM BTL As Ordered ONE
== END ==
LOC: M RAD 08:09
PROVIDERS: ATTEND Family Medicine
DX: R10.13 Epigastric pain (principal)

== ENCOUNTER → 2021-06-01 | Outpatient (CLI) | payer OTHER ==
[~2021-06-01] MED LIST changes: +AMIO200T3 PO; -AMIO200T49 PO; +CAND8TAB PO; -CAND8TAB8 PO; -E-Z-GAS II EFFERVESCENT PACKET (SODIUM BICARB./CITRIC ACID/SIMETHICONE) As Ordered ONE; -E-Z-HD 98% w/w 340GM SUSP BTL As Ordered ONE; -E-Z-PAQUE 96% w/w SUSP 176GM BTL As Ordered ONE
--- NOTE | 2021-06-02 15:49 | SLEEPCENT ---
DATE: 06/01/2021 ORDERED BY: Dr. Longo Nocturnal polysomnography was performed for evaluation of sleep physiology in this patient with a prior history of obstructive sleep apnea, experiencing excessive somnolence and nonrestorative sleep. There was 7 hours and 16 minutes of data reviewed. There was 351 minutes of sleep identified. Sleep latency was short at 8 minutes. REM latency was short at 75 minutes. Sleep architecture was fairly good with four REM cycles. Overall sleep efficiency was 81/3%. The electrocardiogram showed atrial fibrillation with an average heart rate of 56 beats per minute. Rate ranged 40-70. EEG showed normal waveforms for wake and sleep. There were 155 respiratory events identified of 10 seconds in duration or greater for an apnea-hypopnea index of 26.5. The events were obstructive, not exclusive to sleep stage nor position. Arousals from respiratory events occurred 6.8 times per hour, and oxygen desaturations were seen into the 80s. There was some minor limb activity noted in the EMG leads. Limb movement arousal index 1.9. IMPRESSION: Obstructive sleep apnea syndrome (G47.33). Apnea-hypopnea index 26.5. RECOMMENDATION: The patient should be encouraged to return to the sleep disorder center for pressure therapy. In the interim, alcohol and sedative avoidance should be practiced and caution exercised during the operation of motor vehicles.
== END ==
LOC: M SLEEP 20:00
PROVIDERS: ATTEND Internal Medicine Pulmonary Disease
DX: G47.33 Obstructive sleep apnea (adult) (pediatric) (principal)

== ENCOUNTER → 2021-06-08 | Outpatient (CLI) | payer OTHER ==
[~2021-06-08] MED LIST changes: -AMIO200T3 PO; +AMIO200T49 PO; -CAND8TAB PO; +CAND8TAB8 PO
== END ==
LOC: M RAD 13:30
PROVIDERS: ATTEND Internal Medicine Pulmonary Disease
DX: R91.8 Other nonspecific abnormal finding of lung field (principal)

== ENCOUNTER → 2021-08-04 | Outpatient (CLI) | payer MEDICARE ==
[2021-08-04 11:06] LABS: BLOOD UREA NITROGEN 29 MG/DL (7-18); CARBON DIOXIDE LEVEL 31 MEQ/L (21-32); CHLORIDE LEVEL 102 MEQ/L (98-107); CREATININE FOR GFR 0.91 MG/DL (0.70-1.30); GLOMERULAR FILTRATION RATE > 60.0 (>56); GLUCOSE, FASTING 101 MG/DL (70-100); NT-PRO BNP 5181 PG/ML (<125); POTASSIUM SERUM 4.2 MEQ/L (3.5-5.1); SODIUM LEVEL 138 MEQ/L (136-145)
== END ==
LOC: M LAB 09:42
PROVIDERS: ATTEND Internal Medicine Cardiovascular Disease
DX: I50.42 Chronic combined systolic (congestive) and diastolic (congestive) heart failure (principal)

== ENCOUNTER → 2021-08-14 | Outpatient (CLI) | payer MEDICARE | LOC: M SLEEP 20:00 | PROVIDERS: ATTEND Internal Medicine Pulmonary Disease | DX: G47.33 Obstructive sleep apnea (adult) (pediatric) (principal) ==

== ENCOUNTER → 2021-08-20 | Outpatient (CLI) | payer MEDICARE ==
[2021-08-20 16:04] LABS: HEMATOCRIT 39.4 % (42.0-52.0); MEAN CORPUSCULAR HEMOGLOBIN 29.1 pg (27.0-33.0); MEAN CORPUSCULAR VOLUME 88.3 fl (80.0-96.0); PLATELET COUNT, AUTOMATED 259 10^3/uL (150-450); RED BLOOD COUNT 4.46 10^6/uL (4.30-6.10); WHITE BLOOD COUNT 9.7 10^3/uL (4.0-10.0)
[2021-08-20 16:43] LABS: ALBUMIN 3.5 GM/DL (3.2-5.2); ALT/SGPT 58 U/L (12-78); BILIRUBIN,TOTAL 0.5 MG/DL (0.2-1.0); BLOOD UREA NITROGEN 35 MG/DL (7-18); CALCIUM LEVEL 8.9 MG/DL (8.5-10.1); CARBON DIOXIDE LEVEL 31 MEQ/L (21-32); CHLORIDE LEVEL 102 MEQ/L (98-107); CHOLESTEROL LEVEL 165 MG/DL (<200); CREATININE FOR GFR 1.27 MG/DL (0.70-1.30); GLOMERULAR FILTRATION RATE > 60.0 (>56); GLUCOSE, FASTING 78 MG/DL (70-100); HDL CHOLESTEROL 44 MG/DL (>40); LDL CHOLESTEROL 108 MG/DL (<100); NON-HDL-C 121 MG/DL; POTASSIUM SERUM 4.6 MEQ/L (3.5-5.1); SODIUM LEVEL 138 MEQ/L (136-145); TESTOSTERONE 464 NG/DL (241-827); TOTAL PROTEIN 6.3 GM/DL (6.4-8.2); TRIGLYCERIDES LEVEL 67 MG/DL (<150)
[2021-08-20 17:43] LABS: TOTAL 25(OH) VITAMIN D 67.1 NG/ML (30.0-100.0)
== END ==
LOC: M LAB 15:12
PROVIDERS: ATTEND Family Medicine
DX: I10 Essential (primary) hypertension (principal); R53.83 Other fatigue; E03.9 Hypothyroidism, unspecified
CPT/HCPCS: 36415; 80053; 80061; 82306; 84403; 84443; 85027; G0103

== ENCOUNTER → 2021-10-07 | Outpatient (CLI) | payer MEDICARE ==
[2021-10-07 13:31] LABS: THYROID STIMULATING HORMONE 0.914 uIU/ML (0.358-3.740); THYROXINE (T4) 9.2 UG/DL (4.5-12.0); TOTAL T3 111.3 NG/DL (60.0-181.0)
== END ==
LOC: M LAB 11:57
PROVIDERS: ATTEND Family Medicine
DX: R53.83 Other fatigue (principal); E03.9 Hypothyroidism, unspecified